=== PATIENT | female | born 1975 | race Caucasian/White ===

== ENCOUNTER 2020-08-27 20:37 | Emergency (ER) | payer OTHER, SELFPAY ==
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
[2020-08-27 21:58] VITALS: BP 176/117; PULSE 94; RESP 20; TEMP 36.9; O2SAT 95; BMI 46.8
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
[2020-08-27 23:43] LABS: Basophils Absolute Auto 0.1 X10*3/uL (0.0-0.2); Basophils Percent Auto 0.7 % (0-2); Eosinophils Absolute Auto 0.2 X10*3/uL (0.0-0.4); Eosinophils Percent Auto 1.7 % (0-4); Hematocrit 43.1 % (37-47); Hemoglobin 15.1 g/dl (12.0-16.0); Imm Gran Abs Auto 0.03 X10*3/uL (0.00-0.03); Imm Gran Pct Auto 0.3 % (0.0-0.4); Lymphocytes Absolute Auto 2.5 X10*3/uL (1.2-4.9); Lymphocytes Percent Auto 25.9 % (20-40); MANUAL DIFF FLAG NO; Mean Corpuscular Hemoglobin 33.3 pg (27.0-33.0); Mean Corpuscular Volume 94.9 fL (80-98); Mean Platelet Volume 9.2 fL (9.4-12.3); Monocytes Absolute Auto 0.5 X10*3/uL (0.1-1.2); Monocytes Percent Auto 5.5 % (2-11); Neutrophils Absolute Auto 6.4 X10*3/uL (2.0-8.3); Neutrophils Percent Auto 65.9 % (45-73); Platelet Count 274 X10*3/uL (160-400); Red Blood Count 4.54 X10*6/uL (4.20-5.50); Red Cell Distribution Width 11.9 % (11.0-16.0); White Blood Count 9.7 X10*3/uL (4.8-10.8)
[2020-08-27] MEDS: LORazepam 2 MG/ML VIAL 0.5 MG IVPUSH (23:43)
[2020-08-27 23:48] LABS: Prothrombin Time 11.3 SEC (10.8-13.0)
[2020-08-27 23:51] LABS: Partial Thromboplastin Time 33.3 SEC (24.1-38.0)
[2020-08-27] MEDS: Lidocaine HCl 2 % MPF 5 ML VIAL 15 ML SUBCUT (23:51)
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
[2020-08-28 01:47] LABS: Ethanol 155 mg/dL
[2020-08-28 01:49] LABS: Anion Gap 17 (12-20); Blood Urea Nitrogen 7 mg/dL (9-16); Calcium 8.9 mg/dL (8.4-10.2); Carbon Dioxide 20 mmol/L (22-29); Chloride 107 mmol/L (96-108); Creatinine Clr Calc Pharmacy 133.8; Estimated Glomerular Filt Rate > 60; Glucose Random 93 mg/dL (60-115); Potassium 3.9 mmol/L (3.3-5.1); Sodium 140 mmol/L (135-145)
== END 2020-08-28 01:40 | disposition home or self-care (01) ==
PROVIDERS: Nurse Practitioner Family; Emergency Provider Internal Medicine; PCP Internal Medicine
DX: S01.81XA Laceration without foreign body of other part of head, initial encounter (principal); S16.1XXA Strain of muscle, fascia and tendon at neck level, initial encounter; S06.0X9A Concussion with loss of consciousness of unspecified duration, initial encounter; G44.309 Post-traumatic headache, unspecified, not intractable; V43.52XA Car driver injured in collision with other type car in traffic accident, initial encounter; Y93.9 Activity, unspecified; Y92.410 Unspecified street and highway as the place of occurrence of the external cause; Y99.9 Unspecified external cause status; Z23 Encounter for immunization
CPT/HCPCS: 12014; 36415; 70450; 71046; 72125; 73090; 73110; 80048; 80320; 85025; 85610; 85730; 90471; 96374; 99283; 99284; J2060

== ENCOUNTER 2020-09-02 15:47 | Emergency (ER) | payer OTHER, SELFPAY ==
[2020-09-02 15:50] VITALS: BP 174/98; PULSE 99; RESP 18; TEMP 37.2; O2SAT 97; BMI 44.9
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
== END 2020-09-02 20:13 | disposition home or self-care (01) ==
PROVIDERS: Emergency Provider Internal Medicine; PCP Internal Medicine
DX: S01.111D Laceration without foreign body of right eyelid and periocular area, subsequent encounter (principal); V49.9XXD Car occupant (driver) (passenger) injured in unspecified traffic accident, subsequent encounter; Z48.02 Encounter for removal of sutures
CPT/HCPCS: 99283

== ENCOUNTER 2022-04-16 18:06 | Emergency (ER) | payer OTHER, SELFPAY ==
[2022-04-16 18:19] VITALS: BP 183/102; PULSE 90; RESP 18; TEMP 36.6; O2SAT 97; BMI 43.0
== END 2022-04-16 22:18 | disposition left against medical advice (07) ==
PROVIDERS: Emergency Provider Emergency Medicine; PCP Internal Medicine
DX: M79.642 Pain in left hand (principal)
CPT/HCPCS: 99281

== ENCOUNTER 2022-04-17 11:12 | Emergency (ER) | payer OTHER, SELFPAY ==
[2022-04-17 11:29] VITALS: BP 164/88; PULSE 83; RESP 16; TEMP 36.9; BMI 43.0
--- NOTE | 2022-04-17 12:56 | ED_ITS ---
HPI - Burn/Smoke Inhalation General Chief complaint: Burn/Smoke Inhalation Stated complaint: l hand burn Time Seen by Provider: 04/17/22 12:39 Source: patient Mode of arrival: ambulatory Limitations: no limitations History of Present Illness HPI Narrative: 47-year-old female was [id number] presents with burn to the left hand which occurred on . Patient tells me that she was cooking and hot oil s plashed onto her hand. Patient tells me that she has been using aloe cane and Neosporin. For the last 2 days she reports increase in pain especially when the hand is dependent as well as some slight redness around the wound site. No fevers or chills or numbness or tingling. Tetanus is up to date Related Data Previous Rx's Medication Instructions Recorded cephalexin 500 mg capsule 500 mg PO BID #14 caps 04/17/22 Allergies Allergy/AdvReac Type Severity Reaction Status Date / Time ibuprofen Allergy Unknown Stomach Verified 06/23/21 09:37 Upset No Known Allergies Allergy Verified 06/23/21 09:37 NSAIDS (Non-Steroidal AdvReac Gastrointestinal Verified 04/16/22 18:25 Anti-Inflamma Upset cheese Allergy Unknown Diarrhea Uncoded 08/28/20 00:09 cheese/dairy Allergy Unknown URI Uncoded 08/07/17 00:00 symptoms Review of Systems Review of Systems: Yes all other systems are reviewed and are negative Constitutional: Constitutional: Reports no additional constitutional complaints, Denies body ache(s), Denies chills, Denies fever(s), Denies headache(s) and Denies weakness Eyes: Eyes: Reports no additional eye complaints and Denies change in vision ENT: Reports system reviewed and no additional complaints, except as documented, Denies dizziness, Denies headache(s), Denies nasal congestion, Denies nasal discharge and Denies neck pain Cardiovascular: Cardiovascular: Reports no additional cardiovascular complaints, Denies chest pain, Denies leg edema and Denies dyspnea Respiratory: Respiratory: Reports no additional respiratory complaints, Denies cough and Denies dyspnea Gastrointestinal: Gastrointestinal: Reports no additional gastrointestinal complaints, Denies abdominal pain, Denies diarrhea, Denies nausea and Denies vomiting Genitourinary: Genitourinary: Reports no additional female genitourinary complaints and Denies urinary incontinence Musculoskeletal: Musculoskeletal: Reports no additional musculoskeletal complaints, Denies back pain, Denies arthralgias, Denies joint swelling, Denies neck pain, Denies numbness and Denies tingling Integumentary/Breasts: Skin/Breast: Reports system reviewed and no additional complaints, except as docu, Reports swelling, Reports erythema, Denies rash and Reports wounds Neurologic: Reports system reviewed and no additional complaints, except as documented, Denies Abnormal speech present, Denies dizziness, Denies headache(s), Denies numbness, Denies tingling and Denies weakness [facility] Past Medical History Attestation statement: The following information was validated with the patient. Source: old records reviewed and nursing notes reviewed Medical History Anxiety Social History Social History Alcohol intake: current Alcohol intake frequency: 0-2 drinks per day Alcohol type: wine Patient Tobacco Use Status: Current everyday Tobacco user Advance Directives: No Advance Directives Information Provided: No Physical Exam Vital Signs: Vital Signs: Last Vital Signs Temp 98.4 F 04/17/22 11:29 Pulse 83 04/17/22 11:29 Resp 16 04/17/22 11:29 BP 164/88 H 04/17/22 11:29 O2 Del Method 04/17/22 11:29 BMI result Body Mass Index 43.0 Const: General: cooperative, healthy appearing, comfortable and no acute distress Orientation/consciousness: patient oriented x3 Limitations: no limitations HEENT: Head: Yes normal to inspection Ears: hearing grossly normal bilaterally General nose exam: Normal external nose present Face and sinus: Yes normal facial exam Mouth: Normal oral and palatal mucosa present Throat: Yes posterior oropharynx normal Eyes: General: appearance normal, both eyes and all related structures Neck: Neck: Yes normal visual inspection Resp: Effort & Inspection: normal respiratory effort Neuro: General: patient oriented x3, no focal motor deficits and normal sensation to monofilament Cognition (Neuro): normal cognition Speech: No Abnormal speech present Gait exam (Neuro): Normal gait present Extrem: Other: Over the left dorsal hand there are partial-thickness polanco noted with some erythema surrounding the base of the wounds and some tenderness with swelling. The polanco are not circumferential. Neurovascularly intact distally. Full range of motion of the hand General: Yes normal to inspection MDM - Burn/Smoke Inhalation MDM Narrative Medical decision making narrative: 47-year-old female who is [id number] here with partial-thickness polanco left hand which occurred from a boil splash on . Patient concerned because over the last 48 hours she has had increase in pain, swelling and some redness around the wound sites. On exam the patient does have some slight swelling, tenderness and erythema around the bases of the wound. There may be mild cellulitis. Will treat with course of cephalexin. We discussed wound care at home. Reviewed worrisome signs and symptoms of when to return to the emergency room. Comfortable discharge home. Medical Records Attestation: I reviewed the patient's medical records. Lab Data Attestation: I reviewed the patient's lab results. Discharge Plan Discharge Clinical Impression: Second degree burn of back of left hand, Infected wound Patient Disposition: Home, Self-Care Instructions: Wound Infection (ED), Second Degree Burn (ED) Additional Instructions: apply antibiotic ointment only Prescriptions: New cephalexin 500 mg capsule 500 mg PO BID Qty: 14 0RF Referrals: Mer Saeed MD [Primary Care Provider] - 1 week (as needed)
[2022-04-17] MEDS: cephALEXin 500 MG CAPSULE PO (13:14)
== END 2022-04-17 13:39 | disposition home or self-care (01) ==
PROVIDERS: Emergency Provider Student in an Organized Health Care Education/Training Program; PCP Internal Medicine
DX: L03.114 Cellulitis of left upper limb (principal); T23.262A Burn of second degree of back of left hand, initial encounter; T31.0 Burns involving less than 10% of body surface; X10.2XXA Contact with fats and cooking oils, initial encounter; Y93.G3 Activity, cooking and baking; Y92.030 Kitchen in apartment as the place of occurrence of the external cause; Y99.9 Unspecified external cause status; F17.200 Nicotine dependence, unspecified, uncomplicated
CPT/HCPCS: 99283

== ENCOUNTER 2022-10-27 07:56 | Outpatient (REF) | payer OTHER, SELFPAY ==
--- NOTE | ~2022-10-27 | MM_ITS ---
EXAMINATION: MM DIAGNOSTIC DIGITAL BREAST TOMOSYNTHESIS, BILATERAL US TARGETED BREAST, RIGHT CLINICAL INFORMATION: Right breast lump 2 o'clock position The lifetime risk of breast cancer based on the Tyrer-Cuzick Model is O%. COMPARISON: Mammography: None TECHNIQUE: Digital breast tomosynthesis is performed in both the craniocaudal and mediolateral oblique views along with computer-aided detection (CAD). Synthesized 2D images are generated from the tomosynthesis. Additional right breast spot compression views performed in craniocaudal and mediolateral oblique views. Targeted right breast ultrasound FINDINGS: There are scattered areas of fibroglandular density (ACR BI-RADS breast composition Category b). There are no significant masses, abnormal calcifications, or other abnormalities. Right breast ultrasound in region of palpable abnormality demonstrates a hypoechoic dermal lesion measuring approximately 5 x 3 mm in size with some increased through-sound transmission. There is vascularity seen within and around the lesion. No abscess formation is appreciated. No intraparenchymal extension is appreciated. No significant edematous change is noted. Results are discussed with the patient at time of visit. MM/MM tomosynthesis diagnostic BI IMPRESSION: 1. No suspicious mammographic findings. 2. Ultrasound evaluation of the right breast palpable lesion demonstrates a dermal structure with some hypervascularity. This may represent a sebaceous cyst. Patient is starting antibiotics and clinical follow-up and correlation is suggested. ASSESSMENT: BI-RADS 2: Benign RECOMMENDATION: 1. Patient should be managed based on the clinical impression. Decision to proceed with biopsy should be based on clinical grounds and degree of clinical concern. 2. Otherwise, routine annual screening mammography. This patient's information was entered into a reminder system with a target due date for their next mammogram.
== END 2022-10-27 07:57 | disposition home or self-care (01) ==
LOC: HO.MAMMO 07:56
PROVIDERS: PCP Internal Medicine; Visit Provider Nurse Practitioner Family
DX: N63.12 Unspecified lump in the right breast, upper inner quadrant (principal)
CPT/HCPCS: 76642; 77062; 77066

== ENCOUNTER → 2023-04-30 11:13 | Outpatient (BNVA) | payer OTHER, SELFPAY | PROVIDERS: PCP Internal Medicine | DX: S50.372A Other superficial bite of left elbow, initial encounter (principal); W50.3XXA Accidental bite by another person, initial encounter | CPT/HCPCS: 99203 ==

== ENCOUNTER 2023-06-25 12:22 | Outpatient (AMB) | payer OTHER, SELFPAY ==
--- NOTE | 2023-06-25 14:05 | AM.OFFWIN_ITS ---
Intake Vital Signs 06/25/23 14:12 Height 5 ft Weight 215 lb BMI 42.0 BP 138/80 Blood Pressure Location Rt brachial Position Sitting Pulse 91 Pulse Source Pulse Oximeter Temp 97.6 F Temp Source Temporal Artery Scan Pulse Oximetry (%) 97 Oxygen Delivery Method Room Air Intake Visit Reasons: EP trouble breathing [id number] Intake Note: pt is here for c/o trouble breathing with exertion with cough x2 months Patient Tobacco Use Status: Current everyday Tobacco user Allergies ibuprofen Allergy (Unknown, Verified 06/25/23 14:52) Stomach Upset No Known Allergies Allergy (Verified 06/25/23 14:52) NSAIDS (Non-Steroidal Anti-Inflamma Adverse Reaction (Verified 06/25/23 14:52) Gastrointestinal Upset cheese Allergy (Unknown, Uncoded 06/25/23 14:52) Diarrhea cheese/dairy Allergy (Unknown, Uncoded 06/25/23 14:52) URI symptoms Medication List - Last Reconciled 06/25/23 by Bubba New MD No Known Home Meds Do you need a note to return to daycare/school/sports/work: Yes HPI EP trouble breathing [id number] HPI Details 48-year-old female presents to the [facility] for a sick visit. 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 Shortness of breath is on exertion and associated with a nonproductive cough. Postnasal drip and symptoms of wheezing. No family members sick. She has not tested for COVID at home. [facility] Medical History Anxiety Social History Alcohol intake: current Alcohol intake frequency: 0-2 drinks per day Alcohol type: wine Patient Tobacco Use Status: Current everyday Tobacco user Physical Exam Vital Signs: Last Vital Signs Temp 97.6 F 06/25/23 14:12 Pulse 91 06/25/23 14:12 BP 138/80 06/25/23 14:12 Pulse Ox 97 06/25/23 14:12 Oxygen Delivery Method Room Air 06/25/23 14:12 BMI result Body Mass Index 42.0 Const General: cooperative and healthy appearing Nutritional Appearance: well nourished Orientation/consciousness: patient oriented x3 Limitations: no limitations HEENT Head: Yes normal to inspection Eyes General: appearance normal, both eyes and all related structures Neck Neck: Yes normal visual inspection Chest Chest palpation & inspection: normal palpation of entire chest wall Resp Effort & Inspection: normal respiratory effort Neuro General: patient oriented x3 Assessment & Plan Assessment & Plan (1) Shortness of breath: Code(s): R06.02 - Shortness of breath Plan: X-ray images were personally reviewed by me. Antibiotic and prednisone given. Symptoms do not improve to follow-up here. Will call with the COVID results. Orders: Orders XR chest 2V Today R05.9 - Cough, unspecified Coding Level of Care Code Est Pt Level 4 (16909) Diagnoses Shortness of breath R06.02
[2023-06-25 14:12] VITALS: BP 138/80; PULSE 91; TEMP 36.4; O2SAT 97; BMI 42.0
== END 2023-06-25 15:17 | disposition home or self-care (01) ==
PROVIDERS: PCP Internal Medicine; Visit Provider Internal Medicine
DX: R06.02 Shortness of breath (principal)
CPT/HCPCS: 99214

== ENCOUNTER 2023-06-25 14:47 | Outpatient (REF) | payer OTHER, SELFPAY ==
--- NOTE | ~2023-06-25 | XR_ITS ---
EXAMINATION: XR CHEST CLINICAL INFORMATION: Cough, unspecified COMPARISON: Chest 08/28/2020 TECHNIQUE: 2 views of the chest were obtained. FINDINGS: The lungs are well expanded. Vertical linear opacity at the left lung bases most suggestive of platelike atelectasis. No convincing evidence of focal consolidation, interstitial pulmonary edema or pneumothorax. No significant abnormality is noted involving the heart, mediastinum, bony thorax or soft tissues. Surgical clips are seen in the left upper quadrant. XR/XR chest 2V IMPRESSION: No significant cardiopulmonary disease.
[2023-06-26 12:37] LABS: Influenza A PCR NEGATIVE (Negative); Influenza B PCR NEGATIVE (Negative); Resp Syncy Virus RNA Qual PCR NEGATIVE (Negative); SARS COV2 PCR INHOUSE NEGATIVE (Negative)
== END 2023-06-25 14:48 | disposition home or self-care (01) ==
LOC: HO.HMGCX 14:47
PROVIDERS: Visit Provider Internal Medicine
DX: Z11.52 Encounter for screening for COVID-19 (principal); Z20.822 Contact with and (suspected) exposure to COVID-19; R05.9 Cough, unspecified; R43.9 Unspecified disturbances of smell and taste
CPT/HCPCS: 0241U; 71046

== ENCOUNTER 2023-09-10 15:43 | Outpatient (AMB) | payer OTHER, SELFPAY ==
--- NOTE | 2023-09-10 15:56 | AM.OFFWIN_ITS ---
Intake Vital Signs 09/10/23 15:57 Height 5 ft Weight 212 lb BMI 41.4 BP 150/100 H Blood Pressure Location Lt brachial Position Sitting Pulse 110 H Pulse Source Pulse Oximeter Temp 99.0 F Temp Source Temporal Artery Scan Pulse Oximetry (%) 98 Oxygen Delivery Method Room Air Intake Visit Reasons: EST/uti (lobby) Intake Note: pt is here today for UTI started 3 days ago Patient Tobacco Use Status: Current everyday Tobacco user Allergies ibuprofen Allergy (Unknown, Verified 09/10/23 15:59) Stomach Upset No Known Allergies Allergy (Verified 09/10/23 15:59) NSAIDS (Non-Steroidal Anti-Inflamma Adverse Reaction (Verified 09/10/23 15:59) Gastrointestinal Upset cheese Allergy (Unknown, Uncoded 06/25/23 14:52) Diarrhea cheese/dairy Allergy (Unknown, Uncoded 06/25/23 14:52) URI symptoms Do you need a note to return to daycare/school/sports/work: Yes HPI HPI Comments History of Present Illness Details 48-year-old female presents today compla ining of dysuria urgency frequency x2 days. She does have a past medical history of UTI she does know that her blood pressure was high today at 150/100. She is going to measure it at home for the next few weeks and call her PCP for follow-up [facility] Medical History Anxiety Social History Alcohol intake: current Alcohol intake frequency: 0-2 drinks per day Alcohol type: wine Patient Tobacco Use Status: Current everyday Tobacco user Review of Systems Const All systems reviewed & are unremarkable except as noted in HPI and below Physical Exam Vital Signs: Last Vital Signs Temp 99.0 F 09/10/23 15:57 Pulse 110 H 09/10/23 15:57 BP 150/100 H 09/10/23 15:57 Pulse Ox 98 09/10/23 15:57 Oxygen Delivery Method Room Air 09/10/23 15:57 BMI result Body Mass Index 41.4 The high blood pressure reading was discussed with the patient today Const General: healthy appearing and in distress mild Results AMB Urinalysis, Automated UA Leukoctes 70 Neelam/uL Last Edit by Meghan Zambrano CMA on 09/10/23 16:16 UA Nitrite Negative Last Edit by Meghan Zambrano, SIGNALS INTELLIGENCE SUPERINTENDENT on 09/10/23 16:16 UA Urobilinogen 0.2 mg/dL Last Edit by Meghan Zambrano, SIGNALS INTELLIGENCE SUPERINTENDENT on 09/10/23 16 :16 UA Protein 30 mg/dL Last Edit by Meghan Zambrano, SIGNALS INTELLIGENCE SUPERINTENDENT on 09/10/23 16:16 UA pH 6.0 Last Edit by Meghan Zambrano, SIGNALS INTELLIGENCE SUPERINTENDENT on 09/10/23 16:16 UA Blood 10 [place]awanda/uL Last Edit by Meghan Zambrano, SIGNALS INTELLIGENCE SUPERINTENDENT on 09/10/23 16:16 UA Specific [place] 1.020 Last Edit by Meghan Zambrano, SIGNALS INTELLIGENCE SUPERINTENDENT on 09/10/23 16:16 UA Ketone Positive Last Edit by Meghan Zambrano, SIGNALS INTELLIGENCE SUPERINTENDENT on 09/10/23 16:16 UA Bilirubin 1 mg/dL Last Edit by Meghan Zambrano, SIGNALS INTELLIGENCE SUPERINTENDENT on 09/10/23 16:16 UA Glucose 0 mg/dL Last Edit by Meghan Zambrano, SIGNALS INTELLIGENCE SUPERINTENDENT on 09/10/23 16:16 Results Reviewed Results Reviewed: I discuss the results of the urinalysis with her and the urine culture that will return in 2 days Assessment & Plan Assessment & Plan (1) UTI (urinary tract infection): Code(s): N39.0 - Urinary tract infection, site not specified Plan: Patient will take antiemetics and will follow up with her urine culture in 2 days Orders: Orders Urine Culture Today R30.0 - Dysuria AMB Urinalysis Automated Today Z13.9 - Encounter for screening, unspecified Medications: New cephalexin 500 mg PO BID 14 caps 0RF 7 days Coding Level of Care Code Est Pt Level 3 (90020) Diagnoses UTI (urinary tract infection) N39.0
[2023-09-10 15:57] VITALS: BP 150/100; PULSE 110; TEMP 37.2; O2SAT 98; BMI 41.4
== END 2023-09-10 17:17 | disposition home or self-care (01) ==
PROVIDERS: Visit Provider Physician Assistant Medical
DX: N39.0 Urinary tract infection, site not specified (principal); R30.0 Dysuria
CPT/HCPCS: 81003; 99213

== ENCOUNTER 2023-12-19 09:43 | Outpatient (AMB) | payer OTHER, SELFPAY ==
[2023-12-19 09:51] VITALS: BP 126/76; PULSE 103; TEMP 36.3; O2SAT 97; BMI 43.7
--- NOTE | 2023-12-19 09:51 | AM.OFFWIN_ITS ---
Intake Vital Signs 12/19/23 09:51 Height 5 ft Weight 224 lb BMI 43.7 BP 126/76 Blood Pressure Location Lt brachial Position Sitting Pulse 103 H Pulse Source Pulse Oximeter Temp 97.4 F Temp Source Temporal Artery Scan Pulse Oximetry (%) 97 Oxygen Delivery Method Room Air Intake Visit Reasons: EP ?UTI Intake Note: pt is here todsy for UTI started 1 week ago Patient Tobacco Use Status: Current everyday Tobacco user Allergies ibuprofen Allergy (Unknown, Verified 12/19/23 09:58) Stomach Upset No Known Allergies Allergy (Verified 12/19/23 09:58) NSAIDS (Non-Steroidal Anti-Inflamma Adverse Reaction (Verified 12/19/23 09:58) Gastrointestinal Upset cheese Allergy (Unknown, Uncoded 12/19/23 09:58) Diarrhea cheese/dairy Allergy (Unknown, Uncoded 12/19/23 09:58) URI symptoms Do you need a note to return to daycare/school/sports/work: Yes HPI HPI Comments History of Present Illness Details Patient is a 48yo F who presents to office with UTI concern She was last seen in September for a UTI that as tx with cephalexin She had complete resolution of her symptoms She has hx of urge incontinence and wears a pad She wakes up in the am sometimes and her pad is wet Denies recent diarrhea or illness She said frequency, urgency and supraoubic pressure x 5 days No dysuria, hematuria adominal or back pain Denies fever or chills Azo helps Has not seen urologist She also states dry red rash to L leg and R arm for a while Believes it is psoriasis Using OTC cream without relief + itchy and not painful PFSH Medical History Anxiety Social History Alcohol intake: current Alcohol intake frequency: 0-2 drinks per day Alcohol type: wine Patient Tobacco Use Status: Current everyday Tobacco user Review of Systems Const Denies chills and Denies fever(s) ENT Denies nasal discharge Resp Denies cough GI Denies abdominal pain, Denies diarrhea and Denies vomiting Denies hematuria, Denies dysuria, Reports pelvic pain, Reports urinary incontinence (urge), Reports urinary hesitancy, Reports urinary urgency, Denies vaginal discharge (denies concern stds) and Denies vaginal dryness Musc Denies back pain Skin/Breast Reports pruritus and Reports erythema Physical Exam Vital Signs: Last Vital Signs Temp 97.4 F 12/19/23 09:51 Pulse 103 H 12/19/23 09:51 BP 126/76 12/19/23 09:51 Pulse Ox 97 12/19/23 09:51 Oxygen Delivery Method Room Air 12/19/23 09:51 BMI result Body Mass Index 43.7 General: Non-toxic, NAD. Speaking full sentences. Skin: Warm dry throughout. L anterior wylie pt has slightly raised erythematous dry patch approx 3cm x 5cm with 3 small excoriations. No warmth. No lesions noted to arm. Non-tender to palpation Eye: EOMI Respiratory: CTA bilaterally. No wheezes, rales or rhonchi Cardiac: RRR. No murmur Abdominal: Non-tender. No CVAT MSK: Full ROM extremities. Neurology: A/O. No aphasia or facial droop. Gait without abnormality Psych: Good mood and affect Results AMB Urinalysis, Automated UA Leukoctes 0 Neelam/uL Last Edit by YOAN Dominique on 12/19/23 10:02 UA Nitrite Negative Last Edit by YOAN Dominique on 12/19/23 10:02 UA Urobilinogen 0.2 mg/dL Last Edit by YOAN Dominique on 12/19/23 10:0 2 UA Protein 0 mg/dL Last Edit by YOAN Dominique on 12/19/23 10:02 UA pH 6.0 Last Edit by YOAN Dominique on 12/19/23 10:02 UA Blood 0 Tawanda/uL Last Edit by YOAN Dominique on 12/19/23 10:02 UA Specific [place] 1.015 Last Edit by YOAN Dominique on 12/19/23 10: 02 UA Ketone Negative Last Edit by YOAN Dominique on 12/19/23 10:02 UA Bilirubin 0 mg/dL Last Edit by YOAN Dominique on 12/19/23 10:02 UA Glucose 0 mg/dL Last Edit by YOAN Dominique on 12/19/23 10:02 Assessment & Plan Assessment & Plan (1) Contact dermatitis: Code(s): L25.9 - Unspecified contact dermatitis, unspecified cause Qualifiers: Contact dermatitis type: irritant Contact dermatitis trigger: unspecified trigger Qualified Code(s): L24.9 - Irritant contact dermatitis, un specified cause Plan: Patient seen and evaluated. Cortisone on leg. Not to use on face/mouth/eyes (2) Urgency of urination: Code(s): R39.15 - Urgency of urination Plan: cephalexin Increase fluids F/U with PCP and urology Dicussed all ways to avoid UTIs Patient gave verbal understanding and had no additional questions or concerns at time of discharge All questions answered Orders: Orders AMB Urinalysis Automated Today Z13.9 - Encounter for screening, unspecified Medications: New cephalexin 500 mg PO BID 10 caps 0RF triamcinolone acetonide 0.5% 1 appl topical BID 15 grams 0RF Coding Level of Care Code Est Pt Level 3 (76524) Diagnoses Irritant contact dermatitis, unspecified trigger L24.9 Contact dermatitis type: irritant Contact dermatitis trigger: unspecified trigger Urgency of urination R39.15
== END 2023-12-19 12:16 | disposition home or self-care (01) ==
PROVIDERS: Visit Provider Physician Assistant
DX: L24.9 Irritant contact dermatitis, unspecified cause (principal); R39.15 Urgency of urination
CPT/HCPCS: 81003; 99213

== ENCOUNTER 2025-03-06 07:41 | Outpatient (AMB) | payer BC, SELFPAY ==
--- OUTSIDE RECORDS SUMMARY | 2025-03-06 07:44 | XMS_ITS | Clinical Summary ---
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 Role Phone Unavailable Primary Care Provider Unavailabl e Social History Tobacco Use Types Packs/Day Years Used Date Smoking Tobacco: Never Assessed Comments Unknown Sex and Gender Information Value Date Recorded Sex Assigned at Not on file Legal Sex Female 9:41 AM EST Gender Identity Not on file Sexual Orientation Not on file Plan of Treatment Health Maintenance Due Date Last Done Comments Breast Cancer Screening 1975 DTaP,Tdap,and Td Vaccines (1 - Tdap) 01/21/1995 Hepatitis B Vaccines (1 of 3 - 19+ 3-dose series) 01/21/1995 Cervical Cancer Screening: P ap Smear 01/21/1997 COVID-19 Vaccine ( - 2023-2 5 season) 2024 Depression Screening 07/09/2024 Influenza Vaccine (#1) 2025 HIB Vaccines Aged Out No longer eligi ble based on patient's age to complete this topic HPV Vaccines Aged Out No longer eligi ble based on patient's age to complete this topic Hepatitis A Vaccines Aged Out No long er eligible based on patient's age to complete this topic IPV Vaccines Aged Out No longer eligi ble based on patient's age to complete this topic MMR Vaccines Aged Out No longer eligi ble based on patient's age to complete this topic Meningococcal ACWY Vaccine Aged Out N o longer eligible based on patient's age to complete this topic Meningococcal B Vaccine Aged Out No l onger eligible based on patient's age to complete this topic Pneumococcal Vaccine: Pediat rics (0 to 5 Years) and At-Risk Patients (6 to 49 Years) Aged Out No longer eligible b ased on patient's age to complete this topic RSV Immunization Patients Un marla 20 months Aged Out No longer eligible b ased on patient's age to complete this topic Varicella Vaccines Aged Out No longer eligible based on patient's age to complete this topic
[2025-03-06 07:53] VITALS: BP 152/98; PULSE 80; O2SAT 98; BMI 44.3
--- NOTE | 2025-03-06 07:53 | A.OFFPC_ITS ---
Vital Signs 03/06/25 07:53 Height 5 ft Weight 227 lb BMI 44.3 BP 152/98 H Blood Pressure Location Lt brachial Position Sitting Pulse 80 Pulse Source Pulse Oximeter Pulse Oximetry (%) 98 Oxygen Delivery Method Room Air Intake Visit Reasons: Director Independent establish care Allergies ibuprofen Allergy (Unknown, Verified 03/06/25 07:54) Stomach Upset No Known Allergies Allergy (Verified 03/06/25 07:54) NSAIDS (Non-Steroidal Anti-Inflamma Adverse Reaction (Verified 03/06/25 07:54) Gastrointestinal Upset cheese Allergy (Unknown, Uncoded 03/06/25 07:54) Diarrhea cheese/dairy Allergy (Unknown, Uncoded 03/06/25 07:54) URI symptoms Medication List - Last Reconciled 03/06/25 by Olga Mccormick PA-C No Known Home Meds Tobacco use date assessed: 03/06/25 Dental Screening Dental Screen Date: 03/06/25 Did you have a dental visit in the last 12 months?: No Did you have a dental problem in the last 6 months where you did not have access to dental care?: No Was dental information given to patient?: No HPI Director Independent establish care HPI Details 50-year-old female coming to the office with the 1st time. Today she tells us she has multiple complaints the 1st being she has recurrent urinary tract infection and is currently having burning with urination and urgency. She has around 4-5 UTIs per year and has been recently experiencing worsening incontinence. Does not identify stress incontinence but more so mixed incontinence which has been going on for the last several months. She does not currently have a pearl maker and is not sexually active. She also mentions having elevated blood pressure in medical offices in his not been monitoring the blood pressures at home. She denies any symptoms associated with the blood pressures. 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 She does do repetitive work and plays video games in her free time as well which may be contributing to potentially carpal tunnel syndrome. Denies any burning or pain in the hands but does have numbness and tingling consistently throughout the day. She does also mentioned having patches of possibly psoriasis on the hands and chest that has been improving with steroid creams. She also mentions having worsening anxiety and depression and uncontrolled ADHD and is looking for medication at this time. She has been follow up with a counselor in the past and did not find this helpful. [facility] Medical History Anxiety Surgical History S/P gastric bypass Family History Mother COPD (chronic obstructive pulmonary disease) Heart disease Father Heart attack Brother No problems noted. Son No problems noted. Son No problems noted. Maternal Grandmother Breast cancer Maternal Aunt Breast cancer Other Mental health disorder Substance use disorder Social History Housing: Apartment Alcohol intake: current Alcohol intake frequency: 0-2 drinks per day Alcohol type: wine Patient Tobacco Use Status: Current everyday Tobacco user Tobacco use type: Cigarette Cigarettes Per Day: 15 e-Cigarette/Vaping Use: Never Used Second Hand Smoke Exposure: Yes service: No Current occupational status: employed Current occupation: Para-professional at a elementary school Current occupational exposures/hazards: No Cognitive needs: No Hearing needs: No Vision needs: Yes Female Reproductive History Menstrual control method: progestin IUCD Total pregnancies: 3 Full term: 2 Ab spontaneous: 1 History of abnormal pap smear: No History of STI: No History of abnormal mammogram: No Questionnaire PHQ-9 Over the last 2 weeks, how often have you been bothered by any of the following problems? 1. Little interest or pleasure in doing things: more than half the days 2. Feeling down, depressed, or hopeless: several days 3. Trouble falling or staying asleep, or sleeping too much: nearly every day 4. Feeling tired or having little energy: several days 5. Poor appetite or overeating: several days 6. Feeling bad about yourself - or that you are a failure or have let yourself or your family down: several days 7. Trouble concentrating on things, such as reading the newspaper or watching television: several days 8. Moving or speaking so slowly that other people could have noticed. Or the opposite - being so fidgety or restless that you have been moving around a lot more than usual: not at all 9. Thoughts that you would be better off or of hurting yourself in some way: not at all Total score: 10 Depression Screening Interpretation: Positive Depression Screening Done: Yes 75813 - PHQ-9 Billing: Yes Source: Developed by Drs. Morris Parrish, Lilliana Romero, Salomón Don and colleagues, with an educational iain from [employer]. Thrive Questionnaire Date Thrive assessed: 03/06/25 I am a: Patient What is your living situation today?: I have a steady place to live Within the past 12 months, did the food you bought not last and you didn't have the money to get more?: Never true Within the past 12 months, did you worry whether your food would run out before you got money to buy more?: Never true Do you have trouble paying for medicines?: No Do you have trouble getting transportation to medical appointments?: No Do you have trouble paying your heating and electricity bill?: No Do you have trouble taking care of your child, family member or friend?: No Do you have trouble with day-to-day activities such as bathing, preparing meals, shopping, managing finances, etc.?: No Are you currently unemployed and looking for a job?: No Are you interested in more education?: Yes Please select the resources that you would like help with: None Currently or been in a relationship where the following occur: No concerns reported THRIVE Score: 0 AUDIT C Alcohol Use Questionnaire (AUDIT-C) 1. How often do you have a drink containing alcohol?: 4 or more times a week 2. How many drinks containing alcohol do you have on a typical day when you are drinking?: 1 or 2 3. How often do you have six or more drinks on one occasion?: Never Total Score: 4 DEE-7 AMB Questionnaire DEE-7 Date DEE - 7 assessed: 03/06/25 Feeling nervous, anxious, or on edge: 2 = More than half the days Not being able to stop or control worryin = More than half the days Worrying too much about different things: 2 = More than half the days Trouble relaxin = More than half the days Being so restless that it is hard to sit still: 1 = Several days Becoming easily annoyed or irritable: 0 = Not at all Feeling afraid as if something awful might happen: 1 = Several days Total DEE-7 score (0-4 normal; 5-9 mild; 10-14 moderate; 15-21 severe): 10 Source: Developed by Drs. Morris Parrish, Lilliana Romero, Salomón Don and colleagues, with an educational iain from [employer]. DEE-7 Assessment Billing DEE-7 Assessment Tool: DEE-7 Assessment 64927 Review of Systems Const Denies body aches, Denies chills, Denies fever(s), Denies headache(s) and Denies poor appetite Eyes Reports no additional complaints ENT Denies dizziness and Denies headache(s) Card Denies chest pain, Denies syncope, Denies edema, Denies irregular heart rhythm, Denies lightheadedness and Denies dyspnea Resp Denies dyspnea GI Denies abdominal pain, Denies nausea and Denies vomiting Reports as per HPI Musc Reports as per HPI and Denies abnormal gait Skin/Breast Reports system reviewed and no additional complaints, except as documented Neuro Denies abnormal gait, Denies dizziness, Denies syncope and Denies headache(s) Psych Reports no additional complaints Physical exam (Primary Care) Vital Signs: Last Vital Signs Pulse 80 03/06/25 07:53 BP 152/98 H 03/06/25 07:53 Pulse Ox 98 03/06/25 07:53 Oxygen Delivery Method Room Air 03/06/25 07:53 BMI result Body Mass Index 44.3 Tobacco/Smoking Status: Tobacco use Status Tobacco use date assessed 03/06/25 03/06/25 08:04 Patient Tobacco Use Status Current everyday Tobacco 03/06/25 08:04 Tobacco use type Cigarette 03/06/25 08:04 e-Cigarette/Vaping Use Never Used 03/06/25 08:04 PHQ-9: PHQ-9 Score PHQ-9: Total score 10 03/06/25 11:07 Depression Screening Interpretation: Positive Thrive Assessment: Date of Thrive Assessment Date Thrive assessed 03/06/25 03/06/25 08:04 Currently or been in a relationship where the following occur: No concerns reported Const General: cooperative, healthy appearing, comfortable and no acute distress Orientation/consciousness: patient oriented x3 HENMT Head: Yes normocephalic Ears: hearing grossly normal bilaterally General nose exam: Normal external nose present Eyes General: appearance normal, both eyes and all related structures Conjunctivae: conjunctivae normal Neck Neck: Yes full ROM and Yes no lymphadenopathy Resp Effort & Inspection: normal respiratory effort Auscultation: clear to auscultation bilaterally, no crackles, no rales, no rhonchi and no wheezes Cardio Rate: regular rate Rhythm: regular rhythm Skin General skin exam: no rashes or lesions noted Neuro General: patient oriented x3 Gait exam (Neuro): Normal gait present Extrem Other: No tenderness to palpation over entirety of right knee and no swelling, redness or warmth. Intact strength, sensation, pulses in bilateral lower extremities calf tenderness Positive Tinel test General: Yes normal to inspection, Yes full ROM and No edema Psych Affect: normal affect Attitude: cooperative Insight: Good insight present (Psych) Judgement: Good judgement present (Psych) Results AMB Urinalysis, Automated UA Leukoctes 125 Neelam/uL Last Edit by Federica Winters CMA on 03/06/25 08:55 UA Nitrite Negative Last Edit by Federica Winters CMA on 03/06/25 08:55 UA Urobilinogen 0.2 mg/dL Last Edit by Federica Winters CMA on 03/06/25 08:55 UA Protein 15 mg/dL Last Edit by Federica Winters CMA on 03/06/25 08:55 UA pH 6.0 Last Edit by Federica Winters CMA on 03/06/25 08:55 UA Blood 10 Tawanda/uL Last Edit by Federica Winters CMA on 03/06/25 08:55 UA Specific [place] 1.025 Last Edit by Federica Winters CMA on 03/06/25 08:55 UA Ketone Negative Last Edit by Federica Winters CMA on 03/06/25 08:55 UA Bilirubin 0 mg/dL Last Edit by Federica Winters CMA on 03/06/25 08:55 UA Glucose 0 mg/dL Last Edit by Federica Winters CMA on 03/06/25 08:55 Results Reviewed Results Reviewed: Laboratory Last Values Urine pH (Auto) 6.0 03/06/25 08:54 Specific [place] (Auto) 1.025 03/06/25 08:54 Urine Protein (Auto) 15 mg/dL 03/06/25 08:54 Glucose (UA)(Auto) 0 mg/dL 03/06/25 08:54 Urine Ketones (Auto) Negative 03/06/25 08:54 Urine Blood (Auto) 10 [place]anda/uL 03/06/25 08:54 Urine Nitrite (Auto) Negative 03/06/25 08:54 Urine Bilirubin (Auto) 0 mg/dL 03/06/25 08:54 Urine Urobilinogen (Auto) 0.2 mg/dL 03/06/25 08:54 Leukocyte Esterase (Auto) 125 Neelam/uL 03/06/25 08:54 Coding Level of Care Code New Pt Level 4 (31118) Diagnoses Stomach ulcer K25.9 Recurrent UTI N39.0 Incontinence R32 Anxiety F41.9 ADHD F90.9 OCD (obsessive compulsive disorder) F42.9 Tobacco use disorder F17.200 IUD (intrauterine device) in place Z97.5 Screening for hypercholesterolemia Z13.220 Dermatitis L30.9 Numbness and tingling in both hands R20.0; R20.2 Right knee pain M25.561 Additional Codes DEE-7 Assessment Billing - DEE-7 Assessment Tool: DEE-7 Assessment 52662 ([id number]) PHQ-9 - 67620 - PHQ-9 Billing: Yes ([id number]) Assessment & Plan Assessment & Plan (1) Stomach ulcer: Comment: 2014 Code(s): K25.9 - Gastric ulcer, unspecified as acute or chronic, without hemorrhage or perforation Category: Medical Plan: Patient has a history of a stomach ulcer in his no longer on PPI. Discussed the avoidance of certain foods and NSAIDs and if acid reflux occurs plan to start on omeprazole (2) Recurrent UTI: Code(s): N39.0 - Urinary tract infection, site not specified Category: Medical Plan: Patient having urinary tract infection in the office today plan to treat with Macrobid twice daily for 7 days and urine culture was sent to further guide antibiotic treatment. Referral was also placed to Urology as patient has recurrent urinary tract infections alongside mixed incontinence. Discussed proper hygiene and avoidance of UTIs. (3) Incontinence: Code(s): R32 - Unspecified urinary incontinence Category: Medical Plan: See above (4) Anxiety: Code(s): F41.9 - Anxiety disorder, unspecified Category: Medical Plan: For anxiety and ADHD management plan to start on Wellbutrin 150 mg daily and consider taper up to 150 mg b.i.d. based on tolerance. Patient has been on this in the past which has helped her anxiety previously. No history of seizure disorder and side effects were discussed at length with the patient. Follow up in 3 months. (5) ADHD: Code(s): F90.9 - Attention-deficit hyperactivity disorder, unspecified type Category: Medical Plan: See above (6) OCD (obsessive compulsive disorder): Code(s): F42.9 - Obsessive-compulsive disorder, unspecified Category: Medical Plan: Declining referral at this time (7) Tobacco use disorder: Code(s): F17.200 - Nicotine dependence, unspecified, uncomplicated Category: Medical Plan: Smoking cigarettes and the use of tobacco can be harmful. We discussed the importance of stopping and options to aid in smoking cessation. Plan to start on Wellbutrin for smoking cessation (8) IUD (intrauterine device) in place: Code(s): Z97.5 - Presence of (intrauterine) contraceptive device Category: Medical Plan: Patient has IUD in place and referral was placed to gynecology as this may need to be removed. (9) Screening for hypercholesterolemia: Code(s): Z13.220 - Encounter for screening for lipoid disorders Category: Medical Plan: Blood work ordered (10) Dermatitis: Code(s): L30.9 - Dermatitis, unspecified Category: Medical Plan: For dermatitis plan to give steroid cream to be used as needed low longer than 14 days. In referral was placed to Dermatology as well (11) Numbness and tingling in both hands: Code(s): R20.0 - Anesthesia of skin; R20.2 - Paresthesia of skin Category: Medical Plan: For numbness and tingling in bilateral hands high suspicion for carpal tunnel syndrome given patient's occupation and positive Tinel's test today. Plan for EMG and consider referral for orthopedics. Discussed the use of nighttime wrist splints (12) Right knee pain: Code(s): M25.561 - Pain in right knee Category: Medical Plan: For right knee pain plan to obtain x-ray for further evaluation and consider orthopedics or physical therapy referral Plan This note was constructed using voice recognition software. While every effort has been made to ensure accuracy and cane weigher helper, still areas may have been included sometimes these areas may affect the content or meeting of the given symptoms. Total time spent caring for the patient today was 45 minutes. This includes time spent before the visit reviewing the chart, time spent during the visit, and time spent after the visit and documentation. Orders: Orders MM tomosynthesis screening BI Today Z12.31 - Encounter for screening mammogram for malignant neoplasm of breast AMB Urinalysis Dipstick Today N39.0 - Urinary tract infection, site not specified, Z13.9 - Encounter for screening, unspecified TSH reflex Free T4 Today Z13.29 - Encounter for screening for other suspected endocrine disorder Lipid Panel Today Z13.220 - Encounter for screening for lipoid disorders Free T4 (Free Thyroxine) Today Z00.00 - Encounter for general adult medical examination without abnormal findings Hemoglobin A1c Today L30.9 - Dermatitis, unspecified, Z13.1 - Encounter for screening for diabetes mellitus NE electromyogram (EMG) Today R20.0 - Anesthesia of skin, R20.2 - Paresthesia of skin NE nerve conduction velocity Today R20.0 - Anesthesia of skin, R20.2 - Paresthesia of skin Comprehensive Met. Panel Today R32 - Unspecified urinary incontinence, Z00.00 - Encounter for general adult medical examination without abnormal findings Complete Blood Count Auto Diff Today N39.0 - Urinary tract infection, site not specified, Z00.00 - Encounter for general adult medical examination without abnormal findings Vitamin B12 and Folate Today Z13.21 - Encounter for screening for nutritional disorder Vitamin D 25-OH Total Today Z13.21 - Encounter for screening for nutritional disorder XR knee RT 2V Today M25.561 - Pain in right knee AMB Urinalysis Automated Today N39.0 - Urinary tract infection, site not specified Urine Culture Today N39.0 - Urinary tract infection, site not specified Referrals HISTOLOGIST TECHNOLOGIST Referral K25.9 - Gastric ulcer, unspecified as acute or chronic, without hemorrhage or perforation, R30.0 - Dysuria, Z12.4 - Encounter for screening for malignant neoplasm of cervix, Z97.5 - Presence of (intrauterine) contraceptive device Urology Referral N39.0 - Urinary tract infection, site not specified, R32 - Unspecified urinary incontinence Cologuard Test Z12.11 - Encounter for screening for malignant neoplasm of colon, Z12.12 - Encounter for screening for malignant neoplasm of rectum Medications: New bupropion HCl SR (Wellbutrin SR) 150 mg PO DAILY 30 tabs 0RF triamcinolone acetonide 0.1% 1 appl topical DAILY 30 grams 0RF nitrofurantoin monohyd/m-cryst 100 mg must administer with a meal/food 100 mg PO Q12H 10 caps 0RF 5 days
== END 2025-03-06 09:01 | disposition home or self-care (01) ==
LOC: HO.HMCH 07:42
DX: K25.9 Gastric ulcer, unspecified as acute or chronic, without hemorrhage or perforation (principal); N39.0 Urinary tract infection, site not specified; R32 Unspecified urinary incontinence; F41.9 Anxiety disorder, unspecified; F90.9 Attention-deficit hyperactivity disorder, unspecified type; F42.9 Obsessive-compulsive disorder, unspecified; F17.200 Nicotine dependence, unspecified, uncomplicated; Z97.5 Presence of (intrauterine) contraceptive device; Z13.220 Encounter for screening for lipoid disorders; L30.9 Dermatitis, unspecified; R20.0 Anesthesia of skin; R20.2 Paresthesia of skin; M25.561 Pain in right knee

== ENCOUNTER → 2025-03-06 07:41 | Outpatient (BNVA) | payer BC, SELFPAY | DX: N39.46 Mixed incontinence (principal); N39.0 Urinary tract infection, site not specified; R20.0 Anesthesia of skin; R20.2 Paresthesia of skin; K25.9 Gastric ulcer, unspecified as acute or chronic, without hemorrhage or perforation; F41.9 Anxiety disorder, unspecified; F90.9 Attention-deficit hyperactivity disorder, unspecified type; F42.9 Obsessive-compulsive disorder, unspecified; F17.210 Nicotine dependence, cigarettes, uncomplicated; Z97.5 Presence of (intrauterine) contraceptive device | CPT/HCPCS: 81003; 96127 ==

== ENCOUNTER 2025-03-06 11:53 | Outpatient (REF) | payer BC, SELFPAY | END 2025-03-06 11:54 | disposition home or self-care (01) | LOC: HO.LNP 11:53 | DX: N39.0 Urinary tract infection, site not specified (principal) | CPT/HCPCS: 87086 ==

== ENCOUNTER 2025-03-13 07:54 | Outpatient (REF) | payer BC, SELFPAY ==
--- OUTSIDE RECORDS SUMMARY | 2025-03-13 07:56 | XMS_ITS | Clinical Summary ---
Author Organization [facility] ity Address [address] [place] [address] Care Team Providers Care Asbestos Surveyor Name Role Phone Unavailable Primary Care Provider [...] Screening: P ap Smear 01/21/1997 COVID-19 Vaccine (2023-2 5 season) 2024 Depression Screening 07/09/2024 Influenza [...]
[2025-03-13 10:50] LABS: MANUAL DIFF FLAG NO
[2025-03-13 10:56] LABS: Hematocrit 46.2 % (37.0-47.0); Hemoglobin 16.2 g/dl (12.0-16.0); Mean Corpuscular HGB Conc 35.1 g/dl (31.0-35.0); Mean Corpuscular Hemoglobin 32.7 pg (27.0-33.0); Mean Corpuscular Volume 93.3 fL (80.0-98.0); Red Blood Count 4.95 X10*6/uL (4.20-5.50); White Blood Count 6.9 X10*3/uL (4.8-10.8)
[2025-03-13 10:57] LABS: Imm Gran Abs Auto 0.02 X10*3/uL (0.00-0.03); Imm Gran Pct Auto 0.3 % (0.0-0.4); Lymphocytes Absolute Auto 2.4 X10*3/uL (1.2-4.9); NRBC Abs Auto 0.000 X10*3/uL (0.0-0.012); NRBC Pct Auto 0.0 /100WBC (0.0-0.2); Platelet Count 330 X10*3/uL (160-400)
[2025-03-13 11:05] LABS: Hemoglobin A1C 134.9646 umol/L; Total Hemoglobin (HGBA1C) 4118.4639 umol/L
[2025-03-13 11:09] LABS: Alanine Aminotransferase 21 U/L (0-31); Albumin Level 4.6 g/dL (3.5-5.0); Alkaline Phosphatase 76 U/L (39-117); Anion Gap 13 (12-20); Aspartate Amino Transferase 26 U/L (5-31); Blood Urea Nitrogen 11 mg/dL (9-16); Calcium 9.1 mg/dL (8.4-10.2); Carbon Dioxide 24 mmol/L (22-29); Chloride 105 mmol/L (96-108); Cholesterol 204 mg/dL (<200); Estimated Glomerular Filt Rate > 60; HDL Cholesterol 79 mg/dL (>40); Potassium 4.3 mmol/L (3.3-5.1); Sodium 138 mmol/L (135-145); Total Protein 7.5 g/dL (6.5-8.0); Triglycerides 91 mg/dL (<150)
[2025-03-13 11:42] LABS: Free T4 (Free Thyroxine) 0.88 ng/dL (0.71-1.85)
[2025-03-13 11:50] LABS: Folate 9.8 ng/mL (> or = 4.0); Vitamin B12 221 pg/mL (200-900)
== END 2025-03-13 07:55 | disposition home or self-care (01) ==
LOC: HO.10HDL 07:54
DX: Z00.00 Encounter for general adult medical examination without abnormal findings (principal); Z13.1 Encounter for screening for diabetes mellitus; Z13.21 Encounter for screening for nutritional disorder; Z13.29 Encounter for screening for other suspected endocrine disorder; Z13.220 Encounter for screening for lipoid disorders; L30.9 Dermatitis, unspecified; R32 Unspecified urinary incontinence; N39.0 Urinary tract infection, site not specified; Z13.6 Encounter for screening for cardiovascular disorders
CPT/HCPCS: 36415; 80053; 80061; 82306; 82607; 82746; 83036; 84439; 84443; 85025

== ENCOUNTER → 2025-03-26 07:45 | Outpatient (BNV) | payer BC, SELFPAY | PROVIDERS: Visit Provider Internal Medicine | DX: Z12.31 Encounter for screening mammogram for malignant neoplasm of breast (principal) | CPT/HCPCS: 77063; 77067 ==

== ENCOUNTER 2025-03-26 07:51 | Outpatient (REF) | payer BC, SELFPAY ==
--- OUTSIDE RECORDS SUMMARY | 2025-03-26 07:57 | XMS_ITS | Clinical Summary ---
Author Organization [facility] ity Address [address] [place] [address] Care Team Providers Care Ell Teacher Name Role Phone Unavailable Primary Care Provider [...] Cervical Cancer Screening: P ap Smear 01/21/1997 Depression Screening 07/09/2024 COVID-19 Vaccine ( - 2023-2 5 season) 2025 Influenza Vaccine (#1) 2025 HIB Vaccines Aged [...]
== END 2025-03-26 07:52 | disposition home or self-care (01) ==
LOC: HO.MAMMO 07:51
DX: Z12.31 Encounter for screening mammogram for malignant neoplasm of breast (principal)
CPT/HCPCS: 77063; 77067

== ENCOUNTER 2025-04-09 08:42 | Outpatient (AMB) | payer BC, SELFPAY ==
[2025-04-09 09:03] VITALS: BP 168/104; PULSE 84; TEMP 36.2; O2SAT 98; BMI 44.7
--- NOTE | 2025-04-09 09:03 | A.OFFPC_ITS ---
Vital Signs 04/09/25 09:03 Height 5 ft Weight 229 lb 2 oz BMI 44.7 BP 168/104 H Blood Pressure Location Lt brachial Position Sitting Pulse 84 Pulse Source Pulse Oximeter Temp 97.1 F Temp Source Temporal Artery Scan Pulse Oximetry (%) 98 Oxygen Delivery Method Room Air Intake Visit Reasons: follow up Allergies ibuprofen Allergy (Unknown, Verified 04/09/25 09:08) Stomach Upset No Known Allergies Allergy (Verified 04/09/25 09:08) NSAIDS (Non-Steroidal Anti-Inflamma Adverse Reaction (Verified 04/09/25 09:08) Gastrointestinal Upset cheese Allergy (Unknown, Uncoded 04/09/25 09:08) Diarrhea cheese/dairy Allergy (Unknown, Uncoded 04/09/25 09:08) URI symptoms Medication List - Last Reconciled 04/09/25 by Olga Mccormick PA-C bupropion HCl SR (Wellbutrin SR) 150 mg PO DAILY cholecalciferol (vitamin D3) 25 mcg PO DAILY nitrofurantoin monohyd/m-cryst 100 mg 100 mg PO Q12H 5 days triamcinolone acetonide 0.1% 1 appl topical DAILY Tobacco use date assessed: 04/09/25 Dental Screening Dental Screen Date: 04/09/25 Did you have a dental visit in the last 12 months?: No Did you have a dental problem in the last 6 months where you did not have access to dental care?: No Was dental information given to patient?: No HPI follow up HPI Details 50 year old female with past medical his tory of OCD, anxiety, ADHD last seen 02/2025 coming in for follow up. Presenting for a follow-up visit to manage multiple chronic conditions and preventative care. She recently has been cutting down on her cigarette smoking from 15 cigarettes per day to 4 cigarettes per day 8 of by Wellbutrin. She knows an improvement in her anxiety, depression and ADHD since starting the Wellbutrin in his only on once daily dosing. She experiences urinary urgency with no present of infection at this time in his awaiting a Urology consultation. [facility] Medical History Anxiety Surgical History S/P gastric bypass Family History Mother COPD (chronic obstructive pulmonary disease) Heart disease Father Heart attack Brother No problems noted. Son No problems noted. Son No problems noted. Maternal Grandmother Breast cancer Maternal Aunt Breast cancer Other Mental health disorder Substance use disorder Social History Housing: Apartment Alcohol intake: current Alcohol intake frequency: 0-2 drinks per day Alcohol type: wine Patient Tobacco Use Status: Current everyday Tobacco user Tobacco use type: Cigarette Cigarettes Per Day: 4 e-Cigarette/Vaping Use: Never Used Second Hand Smoke Exposure: Yes service: No Current occupational status: employed Current occupation: Para-professional at a elementary school Current occupational exposures/hazards: No Cognitive needs: No Hearing needs: No Vision needs: Yes Questionnaire PHQ-9 Over the last 2 weeks, how often have you been bothered by any of the following problems? 1. Little interest or pleasure in doing things: more than half the days 2. Feeling down, depressed, or hopeless: several days 3. Trouble falling or staying asleep, or sleeping too much: nearly every day 4. Feeling tired or having little energy: several days 5. Poor appetite or overeating: several days 6. Feeling bad about yourself - or that you are a failure or have let yourself or your family down: several days 7. Trouble concentrating on things, such as reading the newspaper or watching television: several days 8. Moving or speaking so slowly that other people could have noticed. Or the opposite - being so fidgety or restless that you have been moving around a lot more than usual: not at all 9. Thoughts that you would be better off or of hurting yourself in some way: not at all Total score: 10 Depression Screening Interpretation: Positive Depression Screening Follow-up: Existing condition and In treatment Depression Screening Done: Yes Source: Developed by Drs. Morris Parrish, Lilliana Romero, Salomón Don and colleagues, with an educational iain from [employer]. Thrive Questionnaire Date Thrive assessed: 02/28/25 I am a: Patient What is your living situation today?: I have a steady place to live Within the past 12 months, did the food you bought not last and you didn't have the money to get more?: Never true Within the past 12 months, did you worry whether your food would run out before you got money to buy more?: Never true Do you have trouble paying for medicines?: No Do you have trouble getting transportation to medical appointments?: No Do you have trouble paying your heating and electricity bill?: No Do you have trouble taking care of your child, family member or friend?: No Do you have trouble with day-to-day activities such as bathing, preparing meals, shopping, managing finances, etc.?: No Are you currently unemployed and looking for a job?: No Are you interested in more education?: Yes Please select the resources that you would like help with: None Currently or been in a relationship where the following occur: No concerns reported THRIVE Score: 0 AUDIT C Alcohol Use Questionnaire (AUDIT-C) 1. How often do you have a drink containing alcohol?: 4 or more times a week 2. How many drinks containing alcohol do you have on a typical day when you are drinking?: 1 or 2 3. How often do you have six or more drinks on one occasion?: Never Total Score: 4 DEE-7 AMB Questionnaire DEE-7 Date DEE - 7 assessed: 03/06/25 Feeling nervous, anxious, or on edge: 2 = More than half the days Not being able to stop or control worryin = More than half the days Worrying too much about different things: 2 = More than half the days Trouble relaxin = More than half the days Being so restless that it is hard to sit still: 1 = Several days Becoming easily annoyed or irritable: 0 = Not at all Feeling afraid as if something awful might happen: 1 = Several days Total DEE-7 score (0-4 normal; 5-9 mild; 10-14 moderate; 15-21 severe): 10 Source: Developed by Drs. Morris Parrish, Lilliana Romero, Salomón Don and colleagues, with an educational iain from [employer]. Review of Systems Const Denies body aches, Denies chills, Denies fever(s), Denies headache(s) and Denies poor appetite Eyes Reports no additional complaints ENT Denies dysphagia, Denies dizziness, Denies headache(s) and Denies odynophagia Card Denies chest pain, Denies syncope, Denies edema, Denies irregular heart rhythm, Denies lightheadedness and Denies dyspnea Resp Denies cough and Denies dyspnea GI Denies abdominal pain, Denies constipation, Denies dysphagia, Denies diarrhea, Denies nausea, Denies odynophagia and Denies vomiting Reports no additional complaints Musc Reports no additional complaints and Denies abnormal gait Skin/Breast Reports system reviewed and no additional complaints, except as documented Neuro Denies abnormal gait, Denies dizziness, Denies syncope and Denies headache(s) Psych Reports no additional complaints Physical exam (Primary Care) Vital Signs: Last Vital Signs Temp 97.1 F 04/09/25 09:03 Pulse 84 04/09/25 09:03 BP 168/104 H 04/09/25 09:03 Pulse Ox 98 04/09/25 09:03 Oxygen Delivery Method Room Air 04/09/25 09:03 BMI result Body Mass Index 44.7 Tobacco/Smoking Status: Tobacco use Status Tobacco use date assessed 04/09/25 04/09/25 09:07 Patient Tobacco Use Status Current everyday Tobacco 04/09/25 09:05 Tobacco use type Cigarette 04/09/25 09:05 e-Cigarette/Vaping Use Never Used 04/09/25 09:05 PHQ-9: PHQ-9 Score PHQ-9: Total score 04/09/25 09:12 Depression Screening Interpretation: Positive Depression Screening Follow-up: Existing condition and In treatment Thrive Assessment: Date of Thrive Assessment Date Thrive assessed 02/28/25 04/09/25 09:05 Currently or been in a relationship where the following occur: No concerns reported Const General: cooperative, healthy appearing, comfortable and no acute distress Orientation/consciousness: patient oriented x3 HENMT Head: Yes normocephalic Ears: hearing grossly normal bilaterally General nose exam: Normal external nose present Eyes General: appearance normal, both eyes and all related structures Conjunctivae: conjunctivae normal Neck Neck: Yes full ROM and Yes no lymphadenopathy Resp Effort & Inspection: normal respiratory effort Auscultation: clear to auscultation bilaterally, no crackles, no rales, no rhonchi and no wheezes Cardio Rate: regular rate Rhythm: regular rhythm Skin General skin exam: no rashes or lesions noted Neuro General: patient oriented x3 Gait exam (Neuro): Normal gait present Extrem General: Yes normal to inspection, Yes full ROM and No edema Psych Affect: normal affect Attitude: cooperative Insight: Good insight present (Psych) Judgement: Good judgement present (Psych) Coding Level of Care Code Est Pt Level 3 (51101) Diagnoses Recurrent UTI N39.0 Incontinence R32 Anxiety F41.9 ADHD F90.9 OCD (obsessive compulsive disorder) F42.9 Tobacco use disorder F17.200 Numbness and tingling in both hands R20.0; R20.2 Right knee pain M25.561 Right hip pain M25.551 Hypertension I10 Assessment & Plan Assessment & Plan (1) Recurrent UTI: Code(s): N39.0 - Urinary tract infection, site not specified Category: Medical Plan: She has appointment with Urology coming up. Discussed proper hygiene and avoidance of UTIs. (2) Incontinence: Code(s): R32 - Unspecified urinary incontinence Category: Medical Plan: See above (3) Anxiety: Code(s): F41.9 - Anxiety disorder, unspecified Category: Medical Plan: Anxiety, depression and ADHD have all improved with Wellbutrin daily. Continue on this medication at this time. (4) ADHD: Code(s): F90.9 - Attention-deficit hyperactivity disorder, unspecified type Category: Medical Plan: See above (5) OCD (obsessive compulsive disorder): Code(s): F42.9 - Obsessive-compulsive disorder, unspecified Category: Medical Plan: Declining referral at this time (6) Tobacco use disorder: Code(s): F17.200 - Nicotine dependence, unspecified, uncomplicated Category: Medical Plan: Smoking cigarettes and the use of tobacco can be harmful. We discussed the importance of stopping and options to aid in smoking cessation. Plan to continue on Wellbutrin at this time. Patient has successfully cut back smoking from 15 cigarettes per day to 4 cigarettes per day. (7) Numbness and tingling in both hands: Code(s): R20.0 - Anesthesia of skin; R20.2 - Paresthesia of skin Category: Medical Plan: For numbness and tingling in bilateral hands high suspicion for carpal tunnel syndrome given patient's occupation and positive Tinel's test today. Plan for EMG and consider referral for orthopedics. Discussed the use of nighttime wrist splints EMG scheduled for this month (8) Right knee pain: Code(s): M25.561 - Pain in right knee Category: Medical Plan: For right knee pain plan to obtain x-ray for further evaluation and consider orthopedics or physical therapy referral. Reminded about x-ray (9) Right hip pain: Code(s): M25.551 - Pain in right hip Category: Medical Plan: Patient also complaining of right hip pain plan for hip x-ray as well (10) Hypertension: Code(s): I10 - Essential (primary) hypertension Category: Medical Plan: Blood pressure elevated once again on exam. Plan to start on losartan daily for blood pressure management and follow up in 6 weeks. Plan This note was constructed using voice recognition software. While every effort has been made to ensure accuracy and block cleaner, still areas may have been included sometimes these areas may affect the content or meeting of the given symptoms. Total time spent caring for the patient today was 30 minutes. This includes time spent before the visit reviewing the chart, time spent during the visit, and time spent after the visit and documentation. Orders: Orders XR hip RT min 2V Today M25.551 - Pain in right hip Medications: New losartan 25 mg PO DAILY 90 tabs 0RF Discontinued nitrofurantoin monohyd/m-cryst 100 mg must administer with a meal/food Discontinued Reason: Patient no longer taking 100 mg PO Q12H 5 days 10 caps 0RF
--- OUTSIDE RECORDS SUMMARY | 2025-04-09 09:07 | XMS_ITS | Clinical Summary ---
Author Organization [facility] ity Address [address] [place] [address] Care Team Providers Care Quality Assurance Nurse Name Role Phone Unavailable Primary Care Provider [...] Smear 01/21/1997 Depression Screening 07/09/2024 COVID-19 Vaccine (1 - 2023-2 5 season) 2025 Influenza Vaccine (#1) 2025 RSV Immunization Adult Patie nts (1 - 1-dose 75+ series) 01/21/2051 HIB Vaccines Aged Out No longer eligi [...]
== END 2025-04-09 09:48 | disposition home or self-care (01) ==
LOC: HO.HMCH 08:42
DX: N39.0 Urinary tract infection, site not specified (principal); R32 Unspecified urinary incontinence; F41.9 Anxiety disorder, unspecified; F90.9 Attention-deficit hyperactivity disorder, unspecified type; F42.9 Obsessive-compulsive disorder, unspecified; F17.200 Nicotine dependence, unspecified, uncomplicated; R20.0 Anesthesia of skin; R20.2 Paresthesia of skin; M25.561 Pain in right knee; M25.551 Pain in right hip; I10 Essential (primary) hypertension

== ENCOUNTER 2025-04-28 07:50 | Outpatient (REF) | payer BC, SELFPAY ==
--- NOTE | ~2025-04-28 | XR_ITS ---
EXAMINATION: XR HIP 2 OR MORE VIEWS RIGHT HISTORY: M25.551 - Pain in right hip COMPARISON: There are no prior studies available for comparison. FINDINGS: Two views of the right hip are submitted. Osseous mineralization is normal. There is no fracture or dislocation. The joint space is maintained. The soft tissues are unremarkable. XR/XR hip RT min 2V IMPRESSION: Unremarkable examination of the right hip. Electronically signed by: Morris Gallegos MD 04/28/2025 09:17 AM EDT
--- NOTE | ~2025-04-28 | XR_ITS ---
EXAMINATION: XR KNEE, RIGHT CLINICAL INFORMATION: M25.561 - Pain in right knee COMPARISON: None available. TECHNIQUE: Two views of the right knee. FINDINGS: No fracture, dislocation, or suspicious bone lesion. There is no evidence of joint effusion. There is normal alignment. Mild to moderate tricompartmental osteoarthrosis present, most significant in the lateral compartment. There is mild spurring of the tibial spines. No soft tissue abnormality is evident. XR/XR knee RT 2V IMPRESSION: 1. No acute bony or soft tissue abnormalities. No joint effusion. 2. Mild to moderate tricompartmental osteoarthrosis. Electronically signed by: Watson Cox MD 04/28/2025 09:17 AM EDT
--- NOTE | 2025-04-28 07:53 | EMG_ITS ---
Chief complaint: Only right upper extremity numbness and pain Reason for referral: R20.2, R20.0 Paresthesia, Anesthesia of skin Referred by: CHACE Chopra Procedure done: NCS of right arm with EMG of right upper extremity studied Right median and ulnar motor studies were performed. Right median and ulnar mixed sensory, radial sensory, and median and lateral antecubital brachial sensory studies were performed. EMG needle examination was performed. Right median motor distal latency was slightly prolonged. Right median mixed sensory distal latency was moderately prolonged with slow conduction velocity. Otherwise no significant abnormality noted. Impression: [id number] right median neuropathy across carpal tunnel MTDD
== END 2025-04-28 07:51 | disposition home or self-care (01) ==
LOC: HO.NEURO 07:50
DX: R20.0 Anesthesia of skin (principal); R20.2 Paresthesia of skin; M25.561 Pain in right knee; M25.551 Pain in right hip
CPT/HCPCS: 73502; 73560; 95886; 95909; 95910

== ENCOUNTER → 2025-04-28 07:53 | Outpatient (BNV) | payer BC, SELFPAY | PROVIDERS: Visit Provider Psychiatry & Neurology Neurology | DX: G56.01 Carpal tunnel syndrome, right upper limb (principal) | CPT/HCPCS: 95886; 95910 ==

== ENCOUNTER → 2025-04-28 08:34 | Outpatient (BNV) | payer BC, SELFPAY | PROVIDERS: Visit Provider Radiology Diagnostic Radiology | DX: M25.551 Pain in right hip (principal); M17.11 Unilateral primary osteoarthritis, right knee | CPT/HCPCS: 73502; 73560 ==

== ENCOUNTER 2025-04-30 10:35 | Outpatient (AMB) | payer BC, SELFPAY ==
[2025-04-30 10:46] VITALS: BP 158/84; PULSE 88; O2SAT 96; BMI 44.7
--- NOTE | 2025-04-30 10:46 | MHC.OFFVIS ---
Vital Signs 04/30/25 10:46 Height 5 ft Weight 229 lb BMI 44.7 BP 158/84 H Blood Pressure Location Lt brachial Position Sitting Pulse 88 Pulse Oximetry (%) 96 Oxygen Delivery Method Room Air Intake Visit Reasons: Screening, fecal abnormalities Intake Note: Patient new consult for 1st pre Colonoscopy and fecal abnormalities Patient cc: last week patient was with N/V with Constipation. Denies any other GI issues. 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 Referred by PCP for further evaluation of positive Cologuard. Positive stool DNA test (Cologuard) performed on 03-17-2025. She reports no visible blood per rectum or melena, and stools are described as daily, consistently loose (type 5?6), brown-colored, but not true diarrhea. She endorses incomplete evacuation despite daily bowel movements, which extends the duration of toileting to up to an hour with repeated attempts at completion. She attributes her loose stools and prolonged BM to low fiber intake, with a limited, repetitive diet lacking in fiber-rich foods. No abdominal pain, weight loss, or changes in stool caliber; no valente constipation, but stools remain loose. She denies current nausea, vomiting, hematemesis, heartburn, or dysphagia. Notably, she has a history of a gastric ulcer diagnosed in 2011 (likely peptic in nature), confirmed via endoscopy, typically managed with as-needed acid suppression (tbie-fho-enowgic PPI), required less than weekly or a few times monthly, generally provoked by NSAID use or ?hollow? epigastric sensations without burning. No recent exacerbations. No documented H. pylori eradication; no prior cancer diagnoses. No anemia, stable weight in recent labs. Comorbidities include hypertension and nicotine dependence, with ongoing Losartan and Wellbutrin therapy, as well as topical corticosteroids. Social hx: -ETOH use, 1-2 glasses wine/daily -denies recreational drug use -current 1/2 ppd smoker, working on cessation. - family hx as below -denies personal hx of CA -denies significant cardiopulmonary history -tolerated anesthesia in the past wtihout difficulty. PFSH Medical History (Updated 04/30/25 @ 11:49 by Lynda Sarah CNP) Obesity Acid reflux Anxiety Surgical History (Updated 04/30/25 @ 11:08 by Lynda Sarah CNP) S/P gastric bypass Family History Mother COPD (chronic obstructive pulmonary disease) Heart disease Father Heart attack Brother No problems noted. Son No problems noted. Son No problems noted. Maternal Grandmother Breast cancer Maternal Aunt Breast cancer Other Mental health disorder Substance use disorder Social History Housing: Apartment Alcohol intake: current Alcohol intake frequency: 0-2 drinks per day Alcohol type: wine Patient Tobacco Use Status: Current everyday Tobacco user Tobacco use type: Cigarette Cigarettes Per Day: 4 e-Cigarette/Vaping Use: Never Used Second Hand Smoke Exposure: Yes service: No Current occupational status: employed Current occupation: Para-professional at a elementary school Current occupational exposures/hazards: No Cognitive needs: No Hearing needs: No Vision needs: Yes Review of Systems Const Reports as per HPI ENT Reports as per HPI Card Reports as per HPI Resp Reports as per HPI GI Reports as per HPI Reports as per HPI Physical Exam Vital Signs: Last Vital Signs Pulse 88 04/30/25 10:46 BP 158/84 H 04/30/25 10:46 Pulse Ox 96 04/30/25 10:46 Oxygen Delivery Method Room Air 04/30/25 10:46 BMI result Body Mass Index 44.7 Const General: healthy appearing, no acute distress and well developed Nutritional Appearance: obese Orientation/consciousness: patient oriented x3 HEENT Head: Yes normal to inspection, Yes normocephalic and Yes atraumatic Face and sinus: Yes normal facial exam Eyes General: appearance normal, both eyes and all related structures Neck Neck: Yes normal visual inspection Resp Effort & Inspection: normal respiratory effort, able to speak in complete sentences, no tracheal deviation and symmetric chest movement Cardio Jugular venous distension: no JVD GI Inspection: Yes normal to inspection, No distended and Yes obesity Palpation (GI): Soft to palpation, not firm, nontender and No hepatosplenomegaly present Auscultation: normal bowel sounds Neuro General: patient oriented x3 Gait exam (Neuro): Normal gait present Psych Appearance: grossly normal Mental Status: mental status grossly normal Speech and movement: Normal speech and movement present Affect: normal affect Attitude: cooperative Thought process: Normal thought process present Thought content: Normal thought content present Insight: Good insight present (Psych) Judgement: Good judgement present (Psych) Assessment & Plan Assessment & Plan (1) Positive colorectal cancer screening using Cologuard test: Code(s): R19.5 - Other fecal abnormalities Category: Medical Plan: Screening positive for colonic neoplasia/advanced adenoma; best practice is diagnostic colonoscopy for direct visualization and potential intervention. Additional Testing: - Colonoscopy (recommended and planned) Medication Management: - Preparatory laxative regimen (Miralax split dose + 4 bisacodyl tabs; OTC) Lifestyle Recommendations: - Low-residue diet several days prior to prep (avoid high-fiber, seeds, raw produce, red meat) - Clear liquids day prior; strict bowel prep adherence Follow-Up: - GI follow-up post-procedure for review of pathology and further management based on findings (2) Acid reflux: Code(s): K21.9 - Gastro-esophageal reflux disease without esophagitis Category: Medical Qualifiers: Esophagitis presence: esophagitis presence not specified Qualified Code(s): K21.9 - Gastro-esophageal reflux disease without esophagitis Plan: Subjective hx of upper GI ulcer, uncertain H. pylori eradication, ongoing use of potential irritants (NSAIDs, alcohol, tobacco), intermittent gastric symptoms Additional Testing: - Repeat H. pylori testing - EGD to be performed concurrently with planned colonoscopy Medication Management: -hold PPI x2 weeks - we will resume PPI for daily therapy after breath testing complete - Avoid chronic NSAID use Lifestyle Recommendations: - Minimize/cease alcohol and tobacco; avoidance especially of NSAIDs; dietary modifications as tolerated Follow-Up: - Per EGD results, reassessment of need for acid suppression or H. pylori-directed tx (3) Obesity: Code(s): E66.9 - Obesity, unspecified Category: Medical Qualifiers: Obesity type: due to excess calories Obesity classification: adult class 3 (BMI >= 40) Serious obesity comorbidity presence: without serious comorbidity Body mass index: BMI 40.0-44.9 Qualified Code(s): E66.01 - Morbid (severe) obesity due to excess calories; Z68.41 - Body mass index [BMI] 40.0-44.9, adult; Z68.41 - Body mass index [BMI] 40.0-44.9, adult Plan: Weight stable in 220s post-gastric bypass, ongoing weight management concerns, history of prior bariatric surgery, patient expresses interest in non-pharmacologic strategies Additional Testing: None at this time; monitor weight trends Medication Management: None currently; patient not interested in GLP-1 agonists or other pharmacologic agents due to side effect concerns Lifestyle Recommendations: Encourage review and possible implementation of intermittent fasting (recommend provided); reinforce dietary modifications, portion control, and avoidance of nocturnal eating; support ongoing efforts to reduce alcohol and tobacco use Follow-Up: Monitor weight and metabolic parameters at routine GI and primary care visits; reassess interest in additional interventions as needed Plan Follow-up after endoscopy or sooner as needed Time: I spent a total of 45 minutes on the date of encounter which includes: Preparing to see the patient (reviewed previous documentation, test results and medical history) Performing a medically appropriate exam and/or evaluation Ordering medications, tests, and procedures Documenting clinical information in the health record Orders: Orders H Pylori Breath Test Today Referrals GI Procedure Notification K21.9 - Gastro-esophageal reflux disease without esophagitis, R19.5 - Other fecal abnormalities, Z12.11 - Encounter for screening for malignant neoplasm of colon Medications: New bisacodyl Take per colonoscopy instructions 20 mg (4 x 5 mg) PO ONCE 4 tabs 0RF polyethylene glycol 3350 (Miralax) per colonoscopy prep instructions 238 grams PO ONCE 238 grams 0RF Coding Level of Care Code New Pt New Pt Level 4 (83433) Patient Type New Diagnoses Positive colorectal cancer screening using Cologuard test R19.5 Gastroesophageal reflux disease, unspecified whether esophagitis present K21.9 Esophagitis presence: esophagitis presence not specified Class 3 severe obesity due to excess calories without serious comorbidity with body mass index (BMI) of 40.0 to 44.9 in adult E66.01; Z68.41; Z68.41 Obesity type: due to excess calories Obesity classification: adult class 3 (BMI >= 40) Serious obesity comorbidity presence: without serious comorbidity Body mass index: BMI 40.0-44.9
--- OUTSIDE RECORDS SUMMARY | 2025-04-30 12:47 | XMS_ITS | Clinical Summary ---
Author Organization [facility] ity Address [address] [place] [address] Care Team Providers Care It Security Consulting Director Name Role Phone Unavailable Primary Care Provider [...]
== END 2025-04-30 11:30 | disposition home or self-care (01) ==
LOC: HO.HGI 10:36
PROVIDERS: Visit Provider Nurse Practitioner Family
DX: R19.5 Other fecal abnormalities (principal); K21.9 Gastro-esophageal reflux disease without esophagitis; E66.01 Morbid (severe) obesity due to excess calories; Z68.41 Body mass index [BMI] 40.0-44.9, adult
CPT/HCPCS: 99204

== ENCOUNTER 2025-05-05 13:18 | Outpatient (AMB) | payer BC, SELFPAY ==
[2025-05-05 13:22] VITALS: BP 140/98; PULSE 99; TEMP 36.3; O2SAT 98; BMI 44.8
--- NOTE | 2025-05-05 13:22 | A.OFFPC_ITS ---
Vital Signs 05/05/25 13:22 Height 5 ft Weight 229 lb 6 oz BMI 44.8 BP 140/98 H Blood Pressure Location Lt brachial Position Sitting Pulse 99 Pulse Source Pulse Oximeter Temp 97.3 F Temp Source Temporal Artery Scan Pulse Oximetry (%) 98 Oxygen Delivery Method Room Air Intake Visit Reasons: Shoulder pain (R) Allergies ibuprofen Allergy (Unknown, Verified 05/05/25 13:27) Stomach Upset NSAIDS (Non-Steroidal Anti-Inflamma Adverse Reaction (Verified 05/05/25 13:27) Gastrointestinal Upset Medication List - Last Reviewed 05/05/25 by Elsa Garza MA bisacodyl 20 mg (4 x 5 mg) PO ONCE bupropion HCl SR (Wellbutrin SR) 150 mg PO DAILY cholecalciferol (vitamin D3) 25 mcg PO DAILY losartan 25 mg PO DAILY mecobalamin (vitamin B12) (B12 Active) 1,000 mcg PO DAILY polyethylene glycol 3350 (Miralax) 238 grams PO ONCE triamcinolone acetonide 0.1% 1 appl topical DAILY Tobacco use date assessed: 05/05/25 Dental Screening Dental Screen Date: 05/05/25 Did you have a dental visit in the last 12 months?: No Did you have a dental problem in the last 6 months where you did not have access to dental care?: No Was dental information given to patient?: No HPI Shoulder pain (R) HPI Details 50-year-old female with past medical his tory of OCD, anxiety, ADHD last seen 04/2025 coming in for acute problem. In review of the notes, patient completed nerve conduction study test 04/28/2025 revealed mild to moderate right carpal tunnel. Presenting with worsening right shoulder pain. The shoulder pain initially began in August and has become intensely worse in the last few weeks, with a recent episode of severe pain that brought her to tears. The pain originates in her neck and radiates down her right arm, causing numbness in the entire arm and hand. She rates the current pain as a 6 out of 10. 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 She has tried lidocaine patches, Tylenol for arthritis, a CBD stick, and other topical creams for relief. A nerve conduction study of the right arm showed mild to moderate median neuropathy consistent with carpal tunnel syndrome but no evidence of cervical impingement. [facility] Medical History Obesity Acid reflux Anxiety Surgical History S/P gastric bypass Family History Mother COPD (chronic obstructive pulmonary disease) Heart disease Father Heart attack Brother No problems noted. Son No problems noted. Son No problems noted. Maternal Grandmother Breast cancer Maternal Aunt Breast cancer Other Mental health disorder Substance use disorder Social History Housing: Apartment Alcohol intake: current Alcohol intake frequency: 0-2 drinks per day Alcohol type: wine Patient Tobacco Use Status: Current everyday Tobacco user Tobacco use type: Cigarette Cigarettes Per Day: 11 e-Cigarette/Vaping Use: Never Used Second Hand Smoke Exposure: Yes service: No Current occupational status: employed Current occupation: Para-professional at a elementary school Current occupational exposures/hazards: No Cognitive needs: No Hearing needs: No Vision needs: Yes Questionnaire PHQ-9 Over the last 2 weeks, how often have you been bothered by any of the following problems? 1. Little interest or pleasure in doing things: more than half the days 2. Feeling down, depressed, or hopeless: several days 3. Trouble falling or staying asleep, or sleeping too much: nearly every day 4. Feeling tired or having little energy: several days 5. Poor appetite or overeating: several days 6. Feeling bad about yourself - or that you are a failure or have let yourself or your family down: several days 7. Trouble concentrating on things, such as reading the newspaper or watching television: several days 8. Moving or speaking so slowly that other people could have noticed. Or the opposite - being so fidgety or restless that you have been moving around a lot more than usual: not at all 9. Thoughts that you would be better off or of hurting yourself in some way: not at all Total score: 10 Depression Screening Interpretation: Positive Depression Screening Follow-up: Existing condition and In treatment Depression Screening Done: Yes Source: Developed by Drs. Morris Parrish, Lilliana Romero, Salomón Don and colleagues, with an educational iain from [employer]. Thrive Questionnaire Date Thrive assessed: 02/28/25 I am a: Patient What is your living situation today?: I have a steady place to live Within the past 12 months, did the food you bought not last and you didn't have the money to get more?: Never true Within the past 12 months, did you worry whether your food would run out before you got money to buy more?: Never true Do you have trouble paying for medicines?: No Do you have trouble getting transportation to medical appointments?: No Do you have trouble paying your heating and electricity bill?: No Do you have trouble taking care of your child, family member or friend?: No Do you have trouble with day-to-day activities such as bathing, preparing meals, shopping, managing finances, etc.?: No Are you currently unemployed and looking for a job?: No Are you interested in more education?: Yes Please select the resources that you would like help with: None Currently or been in a relationship where the following occur: No concerns reported THRIVE Score: 0 AUDIT C Alcohol Use Questionnaire (AUDIT-C) 1. How often do you have a drink containing alcohol?: 4 or more times a week 2. How many drinks containing alcohol do you have on a typical day when you are drinking?: 1 or 2 3. How often do you have six or more drinks on one occasion?: Never Total Score: 4 DEE-7 AMB Questionnaire DEE-7 Date DEE - 7 assessed: 03/06/25 Feeling nervous, anxious, or on edge: 2 = More than half the days Not being able to stop or control worryin = More than half the days Worrying too much about different things: 2 = More than half the days Trouble relaxin = More than half the days Being so restless that it is hard to sit still: 1 = Several days Becoming easily annoyed or irritable: 0 = Not at all Feeling afraid as if something awful might happen: 1 = Several days Total DEE-7 score (0-4 normal; 5-9 mild; 10-14 moderate; 15-21 severe): 10 Source: Developed by Drs. Morris Parrish, Lilliana Romero, Salomón Don and colleagues, with an educational iain from [employer]. Review of Systems Const Denies body aches, Denies fatigue, Denies fever(s), Denies frequent falls, Denies headache(s) and Denies weakness Eyes Reports no additional complaints and Denies change in vision ENT Denies dysphagia, Denies dizziness, Denies facial pain, Denies headache(s), Denies nasal congestion and Denies odynophagia Card Denies chest pain, Denies syncope, Denies irregular heart rhythm, Denies leg edema, Denies lightheadedness and Denies dyspnea Resp Denies cough and Denies dyspnea GI Denies constipation, Denies dysphagia, Denies dyspepsia, Denies diarrhea, Denies nausea, Denies odynophagia and Denies vomiting Denies urinary frequency, Denies dysuria, Denies urinary hesitancy and Denies urinary urgency Musc Denies back pain and Denies myalgias Skin/Breast Reports system reviewed and no additional complaints, except as documented Neuro Denies dizziness, Denies syncope, Denies frequent falls, Denies headache(s) and Denies weakness Psych Reports no additional complaints Endo Denies fatigue Physical exam (Primary Care) Vital Signs: Last Vital Signs Temp 97.3 F 05/05/25 13:22 Pulse 99 05/05/25 13:22 BP 140/98 H 05/05/25 13:22 Pulse Ox 98 05/05/25 13:22 Oxygen Delivery Method Room Air 05/05/25 13:22 BMI result Body Mass Index 44.8 Tobacco/Smoking Status: Tobacco use Status Tobacco use date assessed 05/05/25 05/05/25 13:24 Patient Tobacco Use Status Current everyday Tobacco 05/05/25 13:24 Tobacco use type Cigarette 05/05/25 13:24 e-Cigarette/Vaping Use Never Used 05/05/25 13:24 PHQ-9: PHQ-9 Score PHQ-9: Total score 05/05/25 13:32 Depression Screening Interpretation: Positive Depression Screening Follow-up: Existing condition and In treatment Thrive Assessment: Date of Thrive Assessment Date Thrive assessed 02/28/25 05/05/25 13:24 Currently or been in a relationship where the following occur: No concerns reported Const General: cooperative, healthy appearing, comfortable and no acute distress Orientation/consciousness: patient oriented x3 HENMT Head: Yes normocephalic Ears: hearing grossly normal bilaterally General nose exam: Normal external nose present Eyes General: appearance normal, both eyes and all related structures Conjunctivae: conjunctivae normal Neck Neck: Yes full ROM and Yes no lymphadenopathy Resp Effort & Inspection: normal respiratory effort Auscultation: clear to auscultation bilaterally, no crackles, no rales, no rhonchi and no wheezes Cardio Rate: regular rate Rhythm: regular rhythm Skin General skin exam: no rashes or lesions noted Neuro General: patient oriented x3 Gait exam (Neuro): Normal gait present Extrem Other: No pain with internal rotation, extension or flexion of the shoulder. Intact strength, sensation pulses in bilateral upper extremities. No tenderness to palpation over entirety of shoulder General: Yes normal to inspection, Yes full ROM and No edema Psych Affect: normal affect Attitude: cooperative Insight: Good insight present (Psych) Judgement: Good judgement present (Psych) Coding Level of Care Code Est Pt Level 3 (76352) Diagnoses Right shoulder pain M25.511 Hypertension I10 Anxiety F41.9 Assessment & Plan Assessment & Plan (1) Right shoulder pain: Code(s): M25.511 - Pain in right shoulder Category: Medical Plan: The patient's right shoulder and neck pain is suspected to be muscular in origin or an arthritic flare, likely exacerbated by overuse, repetitive motions, and 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 To rule out bony pathology, X- rays of the cervical spine and right shoulder will be ordered. For immediate management of the inflammatory flare, a prednisone taper over 8 days is prescribed, as NSAIDs are contraindicated due to a history of an ulcer and given methocarbamol to be used as needed. A referral will be placed for orthopedics the patient requests. Patient may also use Tylenol, heating pads and gentle stretching (2) Hypertension: Code(s): I10 - Essential (primary) hypertension Category: Medical Plan: Continue on current blood pressure medication. Avoid salt intake and encourage healthy diet and regular exercise. Mildly elevated in the office today however patient is anxious and pain and is also drinking caffeinated beverage during the visit. She has been monitoring blood pressures at home and has seen an improvement but may not be taking the blood pressure appropriately. Finds the patient with resources on how to take appropriate blood pressure plan to follow up in 1 week with values. (3) Anxiety: Code(s): F41.9 - Anxiety disorder, unspecified Category: Medical Plan: The patient reports feeling more anxious and smoking more, and questions whether her recently started Wellbutrin dose should be increased. She was advised to continue the current dose, as Wellbutrin typically takes four to six weeks to reach its full therapeutic effect. The plan is to re-evaluate at the next follow-up appointment. Plan This note was constructed using voice recognition software. While every effort has been made to ensure accuracy and lease purchase truck driver, still areas may have been included sometimes these areas may affect the content or meeting of the given symptoms. Total time spent caring for the patient today was 20 minutes. This includes time spent before the visit reviewing the chart, time spent during the visit, and time spent after the visit and documentation. Patient was informed and verbally consented to the use of an ambient scribe for clinic note documentation during this visit. Orders: Orders XR shoulder RT min 2V 05/05/25 M25.511 - Pain in right shoulder XR cervical spine 2V 05/05/25 M54.2 - Cervicalgia Referrals Orthopedics Referral M25.511 - Pain in right shoulder Medications: New prednisone Take 4 tablets on days 1-2, take 3 tablets on days 3-4, take 2 tablets on days 5-6, take 1 tablet on days 7-8. 10 mg PO DIRECTED 20 tabs 0RF methocarbamol 500 mg PO TID 30 tabs 0RF
--- OUTSIDE RECORDS SUMMARY | 2025-05-05 17:04 | XMS_ITS | Clinical Summary ---
Author Organization [facility] ity Address [address] [place] [address] Care Team Providers Care Police Lieutenant Name Role Phone Unavailable Primary Care Provider [...]
== END 2025-05-05 14:42 | disposition home or self-care (01) ==
LOC: HO.HMCH 13:20
DX: M25.511 Pain in right shoulder (principal); I10 Essential (primary) hypertension; F41.9 Anxiety disorder, unspecified

== ENCOUNTER 2025-05-21 08:15 | Outpatient (REF) | payer BC, SELFPAY ==
--- OUTSIDE RECORDS SUMMARY | 2025-05-21 08:26 | XMS_ITS | Clinical Summary ---
Author Organization [facility] ity Address [address] [place] [address] Care Team Providers Care Elementary Education Tutor Name Role Phone Unavailable Primary Care Provider [...] Depression Screening 07/09/2024 COVID-19 Vaccine (1 - 2024-2 6 season) 2025 Influenza Vaccine (#1) 2025 RSV [...]
== END 2025-05-21 08:16 | disposition home or self-care (01) ==
LOC: HO.LNP 08:15
PROVIDERS: Visit Provider Nurse Practitioner Family
DX: Z11.0 Encounter for screening for intestinal infectious diseases (principal)
CPT/HCPCS: 83013

== ENCOUNTER 2025-05-26 07:57 | Outpatient (AMB) | payer BC, SELFPAY ==
--- NOTE | 2025-05-26 08:01 | MHC.OFFVIS ---
Intake Visit Reasons: urinary incontinence, recurrent UTIs Intake Note: New patient presents today for initial visit for urinary incontinence/recurrent UTI's Urology Medication:Vitamin B12 Blood Thinner:None Antibiotic Allergies:None PVR:0ml Allergies ibuprofen Allergy (Unknown, Verified 05/26/25 21:43) Stomach Upset NSAIDS (Non-Steroidal Anti-Inflamma Adverse Reaction (Verified 05/26/25 21:43) Gastrointestinal Upset Medication List - Last Reconciled 05/26/25 by ESPINOZA Rivera bupropion HCl SR (Wellbutrin SR) 150 mg PO DAILY cholecalciferol (vitamin D3) 25 mcg PO DAILY losartan 25 mg PO DAILY mecobalamin (vitamin B12) (B12 Active) 1,000 mcg PO DAILY polyethylene glycol 3350 (Miralax) 238 grams PO ONCE triamcinolone acetonide 0.1% 1 appl topical DAILY HPI Comments Details: Kat is a very pleasant 50 year old female patient. She has a past medical history of obesity, acid reflux, and anxiety. She presents to the office today as a new patient for ongoing lower urinary tract symptoms she has been experiencing. In discussion with the patient today she reports for many years (atleast 10) she has been having episodes of mixed urinary incontinence as well as urinary urgency and frequency. She reports feeling symptoms have worsened and has recently established PCP care in recommendations were made for urology referral for further assessment evaluation. She reports typically she utilizes 4-5 Sera pads per day. She does report vaginal deliveries of average size babies. She reports 1st labor was prolonged. In office urinalysis results reviewed with the patient today. PVR 0 mL. She does report having followed up with urgent care for UTI like symptoms she had been experiencing at which time she was given antibiotics however urine culture was negative and therefore she discontinued antibiotic therapy. She does report feeling at times she experiences dysuria however feels symptoms are relieved with azo and or increase in hydration. We did discuss potential causes of lower urinary tract symptoms she is experiencing as well as further treatment options and risks and benefits of these treatment options. We did discussed obtaining retroperitoneal ultrasound for further assessment evaluation. She denies gross/visible hematuria, dysuria, foul smelling urine, changes to urinary stream, flank pain, fever, and or chills. All questions were answered. She otherwise offers no other issues or concerns at this time. History of Present Illness The patient is a 50-year-old female presenting with urinary frequency and urgency. She has experienced these symptoms for a decade, necessitating daily pad use due to leakage. The urgency intensifies as she nears the bathroom, prompting a hurried approach. Additionally, the patient reports recurrent urinary tract infections, with three to four episodes per year. Initial tests at urgent care suggested UTIs, but follow-up cultures were negative for bacterial growth. Symptoms often resolve spontaneously within days, indicating possible non-infectious etiology. Lifestyle changes, including reduced caffeine consumption, have been implemented to alleviate symptoms. The patient previously tried medication for overactive bladder but discontinued due to dry mouth. She expresses a preference for diagnostic evaluations over pharmacological interventions. Plan Patient was informed and verbally consented to the use of an ambient scribe for clinic note documentation during this visit. 1. Urinary Frequency And Urgency Lifestyle changes, including avoiding bladder triggers and irritants that were discussed during today's office visit were recommended to assist with managing symptoms. A urodynamic study is planned to evaluate bladder function and guide treatment decisions. Discussion Notes During the consultation, I discussed the patient's symptoms of urinary frequency and urgency, as well as recurrent urinary tract infections. We reviewed lifestyle modifications, including dietary changes, to alleviate symptoms. I explained the urodynamic study procedure, which will help determine treatment approach, whether it be medication or procedural interventions. Information was provided The patient expressed a preference for diagnostic evaluation over medication, and I reassured her that we would proceed at her comfort level. [facility] Medical History Obesity Acid reflux Anxiety Surgical History S/P gastric bypass Family History Mother COPD (chronic obstructive pulmonary disease) Heart disease Father Heart attack Brother No problems noted. Son No problems noted. Son No problems noted. Maternal Grandmother Breast cancer Maternal Aunt Breast cancer Other Mental health disorder Substance use disorder Social History Housing: Apartment Alcohol intake: current Alcohol intake frequency: 0-2 drinks per day Alcohol type: wine Patient Tobacco Use Status: Current everyday Tobacco user Tobacco use type: Cigarette Cigarettes Per Day: 11 e-Cigarette/Vaping Use: Never Used Second Hand Smoke Exposure: Yes service: No Current occupational status: employed Current occupation: Para-professional at a elementary school Current occupational exposures/hazards: No Cognitive needs: No Hearing needs: No Vision needs: Yes Review of Systems Const All systems reviewed & are unremarkable except as noted in HPI and below Physical Exam Const General: cooperative, healthy appearing, comfortable, no acute distress, well developed, alert and awake Orientation/consciousness: patient oriented x3 Limitations: no limitations HEENT Head: Yes normal to inspection, Yes normocephalic and Yes atraumatic Ears: hearing grossly normal bilaterally Eyes General: appearance normal, both eyes and all related structures Neck Neck: Yes normal visual inspection and Yes trachea midline Chest Chest palpation & inspection: normal inspection of the chest Resp Effort & Inspection: normal respiratory effort and able to speak in complete sentences Cardio Rate: regular rate GI Inspection: Yes normal to inspection General: Yes no CVA tenderness Back/Spine/Pelvis Back: no CVA tenderness Skin General skin exam: no rashes or lesions noted Neuro General: patient oriented x3 Extrem General: Yes normal to inspection Psych Appearance: grossly normal and well kempt Mental Status: mental status grossly normal Speech and movement: Normal speech and movement present and Clear speech present Affect: normal affect Attitude: cooperative Thought process: Normal thought process present Thought content: Normal thought content present Insight: Fair insight present (Psych) Judgement: Fair judgement present (Psych) Office Procedures Post Void Residual Post Residual Void Post Void Residual (PVR): 0 25019-Pyds Void Residual by ultrasound Results AMB Urinalysis, Automated UA Leukoctes 0 Neelam/uL Last Edit by Yeimy Natarajan on 05/26/25 12:17 UA Nitrite Negative Last Edit by Yeimy Natarajan on 05/26/25 12:17 UA Urobilinogen 0.2 mg/dL Last Edit by Yeimy Natarajan on 05/26/25 12:17 UA Protein 0 mg/dL Last Edit by Yeimy Natarajan on 05/26/25 12:17 UA pH 6.0 Last Edit by Yeimy Natarajan on 05/26/25 12:17 UA Blood 10 Tawanda/uL Last Edit by Yeimy Natarajan on 05/26/25 12:17 UA Specific [place] 1.020 Last Edit by Yeimy Natarajan on 05/26/25 12:17 UA Ketone Negative Last Edit by Yeimy Natarajan on 05/26/25 12:17 UA Bilirubin 0 mg/dL Last Edit by Yeimy Natarajan on 05/26/25 12:17 UA Glucose 0 mg/dL Last Edit by Yeimy Natarajan on 05/26/25 12:17 Results Reviewed Results Reviewed: Laboratory Last Values Urine pH (Auto) 6.0 05/26/25 12:07 Specific [place] (Auto) 1.020 05/26/25 12:07 Urine Protein (Auto) 0 mg/dL 05/26/25 12:07 Glucose (UA)(Auto) 0 mg/dL 05/26/25 12:07 Urine Ketones (Auto) Negative 05/26/25 12:07 Urine Blood (Auto) 10 Tawanda/uL 05/26/25 12:07 Urine Nitrite (Auto) Negative 05/26/25 12:07 Urine Bilirubin (Auto) 0 mg/dL 05/26/25 12:07 Urine Urobilinogen (Auto) 0.2 mg/dL 05/26/25 12:07 Leukocyte Esterase (Auto) 0 Neelam/uL 05/26/25 12:07 Assessment & Plan Assessment & Plan (1) Incontinence: Code(s): R32 - Unspecified urinary incontinence Category: Medical (2) Lower urinary tract symptoms: Code(s): R39.9 - Unspecified symptoms and signs involving the genitourinary system Category: Medical (3) Urinary frequency: Code(s): R35.0 - Frequency of micturition Category: Medical (4) Urinary incontinence, mixed: Code(s): N39.46 - Mixed incontinence Category: Medical Plan In office urinalysis results reviewed with the patient today; as noted above; will send for urine cytology. PVR 0 mL. We did discuss at length potential causes of lower urinary tract symptoms patient is experiencing as well as further treatment options and risks and benefits of these treatment options. All questions were answered. Will obtain retroperitoneal ultrasound for further assessment evaluation. We discussed bladder triggers and irritants. Information provided regarding urodynamics study. Follow-up next available in office urodynamics with imaging to be completed prior; or sooner with any issues, concerns, and or questions. Orders: Orders AMB Urinalysis Automated Today N39.0 - Urinary tract infection, site not specified, R30.0 - Dysuria, R32 - Unspecified urinary incontinence AMB Post Void Residual by ultrasound Today N39.0 - Urinary tract infection, site not specified, R30.0 - Dysuria, R32 - Unspecified urinary incontinence Urine Cytology Today N39.0 - Urinary tract infection, site not specified, R30.0 - Dysuria, R32 - Unspecified urinary incontinence US retroperitoneal comp Today N39.46 - Mixed incontinence, R32 - Unspecified urinary incontinence, R35.0 - Frequency of micturition, R39.9 - Unspecified symptoms and signs involving the genitourinary system Patient Instructions: The patient had an opportunity to ask questions regarding the treatment plan. All questions were answered. Physical exam, labs, and imaging were discussed and reviewed in detail. As well as risks, benefits, and discussion of treatment choices. No major barriers to understanding were identified. The patient expressed understanding and agreement with the above treatment plan. The patient was made aware they should contact our office by phone for worsening of their current condition, the appearance of new symptoms, or with any questions or concerns. Compliance is encouraged with any medications and follow up testing that is ordered. It is a privilege to be allowed the opportunity to participate in? your urological care.? Again, if you have any questions or concerns If you have any questions or concerns please do not hesitate to contact me. The office is [phone]. This note is constructed using voice recognition software. While every effort has been made to ensure accuracy special population paraprofessional errors may have been included. Yours sincerely, ESPINOZA Rivera Coding Level of Care Code New Pt Level 3 (35858) Diagnoses Incontinence R32 Lower urinary tract symptoms R39.9 Urinary frequency R35.0 Urinary incontinence, mixed N39.46 CPT Codes Post Residual Void - PVR CPT Code: 89615-Rnhi Void Residual by ultrasound ([id number])
== END 2025-05-26 09:09 | disposition home or self-care (01) ==
LOC: HO.HUSH 07:57
PROVIDERS: Visit Provider Nurse Practitioner Family
DX: R32 Unspecified urinary incontinence (principal); R39.9 Unspecified symptoms and signs involving the genitourinary system; R35.0 Frequency of micturition; N39.46 Mixed incontinence; R30.0 Dysuria; N39.0 Urinary tract infection, site not specified
CPT/HCPCS: 99203

== ENCOUNTER 2025-05-26 07:57 | Outpatient (REF) | payer BC, SELFPAY | END 2025-05-26 07:58 | disposition home or self-care (01) | LOC: HO.LAB 07:57 | PROVIDERS: Visit Provider Nurse Practitioner Family | DX: N39.46 Mixed incontinence (principal); N39.0 Urinary tract infection, site not specified; R35.0 Frequency of micturition; R30.0 Dysuria; R39.9 Unspecified symptoms and signs involving the genitourinary system; Z79.899 Other long term (current) drug therapy | CPT/HCPCS: 51798; 81003; 88112 ==

== ENCOUNTER 2025-05-27 08:47 | Outpatient (AMB) | payer BC, SELFPAY ==
[2025-05-27 09:01] VITALS: BP 140/100; PULSE 93; RESP 18; TEMP 36.1; O2SAT 99; BMI 45.0
--- NOTE | 2025-05-27 09:01 | MHC.PC.OV ---
Vital Signs 05/27/25 09:01 Height 5 ft Weight 230 lb 4 oz BMI 45.0 BP 140/100 H Blood Pressure Location Lt brachial Position Sitting Respiration 18 Pulse 93 Pulse Source Pulse Oximeter Temp 96.9 F Temp Source Temporal Artery Scan Pulse Oximetry (%) 99 Oxygen Delivery Method Room Air Intake Visit Reasons: Follow Up Assistant Chief Nursing Officer Required: No Accompanied by: Self / Same As Patient Allergies ibuprofen Allergy (Unknown, Verified 05/27/25 09:02) Stomach Upset NSAIDS (Non-Steroidal Anti-Inflamma Adverse Reaction (Verified 05/27/25 09:02) Gastrointestinal Upset Medication List - Last Reconciled 05/27/25 by Olga Mccormick PA-C bupropion HCl SR (Wellbutrin SR) 150 mg PO BID cholecalciferol (vitamin D3) 25 mcg PO DAILY losartan 25 mg PO DAILY mecobalamin (vitamin B12) (B12 Active) 1,000 mcg PO DAILY polyethylene glycol 3350 (Miralax) 238 grams PO ONCE triamcinolone acetonide 0.1% 1 appl topical DAILY Tobacco use date assessed: 05/27/25 Dental Screening Dental Screen Date: 05/27/25 Did you have a dental visit in the last 12 months?: No Did you have a dental problem in the last 6 months where you did not have access to dental care?: No Was dental information given to patient?: No HPI Follow Up HPI Details 50-year-old female with past medical history of OCD, anxiety, ADHD last seen 04/2025 coming in for follow up. In review of the notes, patient was seen by urology 05/2025 plan to obtain retroperitoneal ultrasound and follow up. Presenting for management of multiple conditions and a new foot complaint. She reports that yesterday her left foot became very itchy at work, and upon returning home, she noticed it was swollen. She also has a palpable heard lump in the anterior left calf. Regarding her chronic shoulder issue, she states the pain has improved, but she continues to experience constant numbness in the same arm. A prior nerve study was normal aside from mild carpal tunnel syndrome, which was deemed unrelated to her shoulder symptoms, and she has a follow-up appointment with orthopedics scheduled for June. The patient monitors her blood pressure at home and shared recent readings have been elevated. Blood pressure has been elevated in the office as well. She continues to smoke cigarettes, noting she does well during the day but experiences a strong craving around 6 p.m. She is currently taking Wellbutrin 150 mg once daily. [facility] Medical History Obesity Acid reflux Anxiety Surgical History S/P gastric bypass Family History Mother COPD (chronic obstructive pulmonary disease) Heart disease Father Heart attack Brother No problems noted. Son No problems noted. Son No problems noted. Maternal Grandmother Breast cancer Maternal Aunt Breast cancer Other Mental health disorder Substance use disorder Social History Housing: Apartment Alcohol intake: current Alcohol intake frequency: 0-2 drinks per day Alcohol type: wine Patient Tobacco Use Status: Current everyday Tobacco user Tobacco use type: Cigarette Cigarettes Per Day: 11 e-Cigarette/Vaping Use: Never Used Second Hand Smoke Exposure: Yes service: No Current occupational status: employed Current occupation: Para-professional at a elementary school Current occupational exposures/hazards: No Cognitive needs: No Hearing needs: No Vision needs: Yes Questionnaire PHQ-9 Over the last 2 weeks, how often have you been bothered by any of the following problems? 1. Little interest or pleasure in doing things: more than half the days 2. Feeling down, depressed, or hopeless: several days 3. Trouble falling or staying asleep, or sleeping too much: nearly every day 4. Feeling tired or having little energy: several days 5. Poor appetite or overeating: several days 6. Feeling bad about yourself - or that you are a failure or have let yourself or your family down: several days 7. Trouble concentrating on things, such as reading the newspaper or watching television: several days 8. Moving or speaking so slowly that other people could have noticed. Or the opposite - being so fidgety or restless that you have been moving around a lot more than usual: not at all 9. Thoughts that you would be better off or of hurting yourself in some way: not at all Total score: 10 Depression Screening Interpretation: Positive Depression Screening Follow-up: Existing condition and In treatment Depression Screening Done: Yes Source: Developed by Drs. Morris Parrish, Lilliana Romero, Salomón Don and colleagues, with an educational iain from [employer]. Thrive Questionnaire Date Thrive assessed: 02/28/25 I am a: Patient What is your living situation today?: I have a steady place to live Within the past 12 months, did the food you bought not last and you didn't have the money to get more?: Never true Within the past 12 months, did you worry whether your food would run out before you got money to buy more?: Never true Do you have trouble paying for medicines?: No Do you have trouble getting transportation to medical appointments?: No Do you have trouble paying your heating and electricity bill?: No Do you have trouble taking care of your child, family member or friend?: No Do you have trouble with day-to-day activities such as bathing, preparing meals, shopping, managing finances, etc.?: No Are you currently unemployed and looking for a job?: No Are you interested in more education?: Yes Please select the resources that you would like help with: None Currently or been in a relationship where the following occur: No concerns reported THRIVE Score: 0 AUDIT C Alcohol Use Questionnaire (AUDIT-C) 1. How often do you have a drink containing alcohol?: 4 or more times a week 2. How many drinks containing alcohol do you have on a typical day when you are drinking?: 1 or 2 3. How often do you have six or more drinks on one occasion?: Never Total Score: 4 DEE-7 AMB Questionnaire DEE-7 Date DEE - 7 assessed: 03/06/25 Feeling nervous, anxious, or on edge: 2 = More than half the days Not being able to stop or control worryin = More than half the days Worrying too much about different things: 2 = More than half the days Trouble relaxin = More than half the days Being so restless that it is hard to sit still: 1 = Several days Becoming easily annoyed or irritable: 0 = Not at all Feeling afraid as if something awful might happen: 1 = Several days Total DEE-7 score (0-4 normal; 5-9 mild; 10-14 moderate; 15-21 severe): 10 Source: Developed by Drs. Morris Parrish, Lilliana Romero, Salomón Don and colleagues, with an educational iain from [employer]. Review of Systems Const Denies body aches, Denies chills, Denies fever(s), Denies headache(s) and Denies poor appetite Eyes Reports no additional complaints ENT Denies dizziness and Denies headache(s) Card Denies chest pain, Denies edema and Denies dyspnea Resp Denies cough and Denies dyspnea GI Denies abdominal pain, Denies constipation, Denies diarrhea, Denies nausea and Denies vomiting Reports no additional complaints Musc Reports no additional complaints and Denies abnormal gait Skin/Breast Reports system reviewed and no additional complaints, except as documented Neuro Denies abnormal gait, Denies dizziness and Denies headache(s) Psych Reports no additional complaints Physical exam (Primary Care) Vital Signs: Last Vital Signs Temp 96.9 F 05/27/25 09:01 Pulse 93 05/27/25 09:01 Resp 18 05/27/25 09:01 BP 140/100 H 05/27/25 09:01 Pulse Ox 99 05/27/25 09:01 Oxygen Delivery Method Room Air 05/27/25 09:01 BMI result Body Mass Index 45.0 Tobacco/Smoking Status: Tobacco use Status Tobacco use date assessed 05/27/25 05/27/25 09:10 Patient Tobacco Use Status Current everyday Tobacco 05/27/25 09:10 Tobacco use type Cigarette 05/27/25 09:10 e-Cigarette/Vaping Use Never Used 05/27/25 09:10 PHQ-9: PHQ-9 Score PHQ-9: Total score 10 05/27/25 09:10 Depression Screening Interpretation: Positive Depression Screening Follow-up: Existing condition and In treatment Thrive Assessment: Date of Thrive Assessment Date Thrive assessed 02/28/25 05/27/25 09:10 Currently or been in a relationship where the following occur: No concerns reported Const General: cooperative, healthy appearing, comfortable and no acute distress Orientation/consciousness: patient oriented x3 HENMT Head: Yes normocephalic Ears: hearing grossly normal bilaterally General nose exam: Normal external nose present Eyes General: appearance normal, both eyes and all related structures Conjunctivae: conjunctivae normal Neck Neck: Yes full ROM and Yes no lymphadenopathy Resp Effort & Inspection: normal respiratory effort Auscultation: clear to auscultation bilaterally, no crackles, no rales, no rhonchi and no wheezes Cardio Rate: regular rate Rhythm: regular rhythm Skin General skin exam: no rashes or lesions noted Neuro General: patient oriented x3 Gait exam (Neuro): Normal gait present Extrem General: Yes normal to inspection, Yes full ROM and No edema Upper/lower leg/hip images:  1. palpable red, warm, swollen bump without TTP 2. red, warm, swollen ankle without TTP. Intact pulses and sensation Psych Affect: normal affect Attitude: cooperative Insight: Good insight present (Psych) Judgement: Good judgement present (Psych) Coding Level of Care Code Est Pt Level 4 (14363) Diagnoses Left leg swelling M79.89 Hypertension I10 Anxiety F41.9 Class 3 severe obesity due to excess calories without serious comorbidity with body mass index (BMI) of 40.0 to 44.9 in adult E66.01; Z68.41; Z68.41 Obesity type: due to excess calories Obesity classification: adult class 3 (BMI >= 40) Serious obesity comorbidity presence: without serious comorbidity Body mass index: BMI 40.0-44.9 Incontinence R32 Tobacco use disorder F17.200 Assessment & Plan Assessment & Plan (1) Left leg swelling: Code(s): M79.89 - Other specified soft tissue disorders Category: Medical Plan: The patient presents with a swollen, warm, red, and itchy foot with a central bump, suspicious for cellulitis, possibly secondary to an insect bite. Due to the unilateral swelling and the patient's risk factor of smoking, a deep vein thrombosis (DVT) must be ruled out. A stat ultrasound of the leg will be ordered today to exclude DVT. The patient will be prescribed doxycycline twice daily for seven days to treat the suspected infection and to cover for a potential tick bite. The patient was advised to seek immediate follow-up if her symptoms worsen or do not improve with antibiotics. (2) Hypertension: Code(s): I10 - Essential (primary) hypertension Category: Medical Plan: The patient's blood pressure is not well-controlled, with recent home readings as high as 140/93 mmHg. The losartan dose will be increased to 50 mg daily. The patient was instructed to take two of her current tablets to achieve the new dose and was advised to implement this change for 3-4 days before adjusting her Wellbutrin. A follow-up appointment is scheduled in two to three months to re-evaluate her blood pressure. (3) Anxiety: Code(s): F41.9 - Anxiety disorder, unspecified Category: Medical Plan: PLan to increase Wellbutrin to BID for better management of anxiety and tobacco use disorder. (4) Obesity: Code(s): E66.9 - Obesity, unspecified Category: Medical Qualifiers: Obesity type: due to excess calories Obesity classification: adult class 3 (BMI >= 40) Serious obesity comorbidity presence: without serious comorbidity Body mass index: BMI 40.0-44.9 Qualified Code(s): E66.01 - Morbid (severe) obesity due to excess calories; Z68.41 - Body mass index [BMI] 40.0-44.9, adult; Z68.41 - Body mass index [BMI] 40.0-44.9, adult Plan: Healthy diet and regular exercise is encouraged. (5) Incontinence: Code(s): R32 - Unspecified urinary incontinence Category: Medical Plan: Continue to follow with urology for workup and has imaging coming up in August. (6) Tobacco use disorder: Code(s): F17.200 - Nicotine dependence, unspecified, uncomplicated Category: Medical Plan: Plan to increase Wellbutrin to BID for better management. Smoking cigarettes and the use of tobacco can be harmful. We discussed the importance of stopping and options to aid in smoking cessation Plan This note was constructed using voice recognition software. While every effort has been made to ensure accuracy and accounting recruiter, still areas may have been included sometimes these areas may affect the content or meeting of the given symptoms. Total time spent caring for the patient today was 20 minutes. This includes time spent before the visit reviewing the chart, time spent during the visit, and time spent after the visit and documentation. Patient was informed and verbally consented to the use of an ambient scribe for clinic note documentation during this visit. Orders: Orders US venous duplex LE LT Today M79.89 - Other specified soft tissue disorders Medications: New losartan 50 mg PO DAILY 90 tabs 0RF doxycycline hyclate 100 mg PO BID 14 tabs 0RF Changed From bupropion HCl SR (Wellbutrin SR) 150 mg PO DAILY 90 tabs 0RF To bupropion HCl SR (Wellbutrin SR) 150 mg PO BID 180 tabs 0RF Discontinued losartan Discontinued Reason: Patient no longer taking 25 mg PO DAILY 90 tabs 0RF
--- OUTSIDE RECORDS SUMMARY | 2025-05-27 16:26 | XMS_ITS | Clinical Summary ---
Author Organization [facility] ity Address [address] [place] [address] Care Team Providers Care Night Time Nanny Name Role Phone Unavailable Primary Care Provider [...]
== END 2025-05-27 10:05 | disposition home or self-care (01) ==
LOC: HO.HMCH 08:48
DX: I10 Essential (primary) hypertension (principal); M79.89 Other specified soft tissue disorders; E66.01 Morbid (severe) obesity due to excess calories; Z68.41 Body mass index [BMI] 40.0-44.9, adult; F41.9 Anxiety disorder, unspecified; R32 Unspecified urinary incontinence; F17.200 Nicotine dependence, unspecified, uncomplicated

== ENCOUNTER 2025-05-27 12:22 | Outpatient (REF) | payer BC, SELFPAY ==
--- NOTE | ~2025-05-27 | XR_ITS ---
EXAMINATION: XR CERVICAL SPINE CLINICAL INFORMATION: M54.2 - Cervicalgia COMPARISON: Correlated to CT dated August 27, 2020 TECHNIQUE: AP, lateral and atlantoodontoid views FINDINGS: Craniocervical junction is intact. Marginal osteophyte formation and endplate sclerosis and decreased intervertebral disc height C5-6 and C6-7 levels. No gross malalignment. No acute cortical disruption. No lytic or blastic lesions. Upper airway is patent. XR/XR cervical spine 2V IMPRESSION: Cervical spondylosis C5-6 and C6-7 levels, worsened since prior exam. EXAMINATION: XR SHOULDER, RIGHT CLINICAL INFORMATION: M 25.511 -pain, right shoulder. COMPARISON: December 13, 2009 TECHNIQUE: AP external rotation, Grashey, scapular Y, and axillary views of the right shoulder. FINDINGS: No acute cortical disruption or malalignment. No lytic or blastic lesions. No soft tissue calcifications. IMPRESSION: No acute fracture or dislocation or gross degenerative changes. Electronically signed by: Shoaib Nolasco MD 05/27/2025 12:56 PM EST
--- NOTE | ~2025-05-27 | XR_ITS ---
EXAMINATION: XR CERVICAL SPINE CLINICAL INFORMATION: M54.2 - Cervicalgia COMPARISON: Correlated to CT dated August 27, 2020 TECHNIQUE: AP, lateral and atlantoodontoid views FINDINGS: Craniocervical junction is intact. Marginal osteophyte formation and endplate sclerosis and decreased intervertebral disc height C5-6 and C6-7 levels. No gross malalignment. No acute cortical disruption. No lytic or blastic lesions. Upper airway is patent. XR/XR shoulder RT min 2V IMPRESSION: Cervical spondylosis C5-6 and C6-7 levels, worsened since prior exam. EXAMINATION: XR SHOULDER, RIGHT CLINICAL INFORMATION: M 25.511 -pain, right shoulder. COMPARISON: December 13, 2009 TECHNIQUE: AP external rotation, Grashey, scapular Y, and axillary views of the right shoulder. FINDINGS: No acute cortical disruption or malalignment. No lytic or blastic lesions. No soft tissue calcifications. IMPRESSION: No acute fracture or dislocation or gross degenerative changes. Electronically signed by: Shoaib Nolasco MD 05/27/2025 12:56 PM EST
--- NOTE | ~2025-05-27 | US_ITS ---
EXAMINATION: US TRIPLEX LOWER EXTREMITY, LEFT CLINICAL INFORMATION: M 79.89 . Edema, left lower extremity. COMPARISON: None available. TECHNIQUE: Color-flow triplex imaging with spectral analysis and compression Doppler were performed on the left lower extremity. FINDINGS: Respiratory variation, normal compression and augmented flow demonstrated in the interrogated left common femoral vein, superficial femoral vein, profunda femoral vein, popliteal vein and midcalf peroneal and posterior tibial venous segments . There is no Ruano's cyst. US/US venous duplex LE IMPRESSION: No acute deep venous thrombosis interrogated veins, left lower extremity. Negative for DVT. Electronically signed by: Shoaib Nolasco MD 05/27/2025 01:12 PM [facility]
== END 2025-05-27 12:23 | disposition home or self-care (01) ==
LOC: HO.US 12:22
DX: M54.2 Cervicalgia (principal); M25.511 Pain in right shoulder; F42.9 Obsessive-compulsive disorder, unspecified; F41.9 Anxiety disorder, unspecified; F90.9 Attention-deficit hyperactivity disorder, unspecified type; M79.89 Other specified soft tissue disorders; I10 Essential (primary) hypertension; E66.01 Morbid (severe) obesity due to excess calories; R32 Unspecified urinary incontinence; F17.210 Nicotine dependence, cigarettes, uncomplicated; Z68.41 Body mass index [BMI] 40.0-44.9, adult
CPT/HCPCS: 72040; 73030; 93971; 96127

== ENCOUNTER → 2025-05-27 12:25 | Outpatient (BNV) | payer BC, SELFPAY | PROVIDERS: Visit Provider Radiology Diagnostic Radiology | DX: M79.89 Other specified soft tissue disorders (principal); M54.2 Cervicalgia; M25.511 Pain in right shoulder | CPT/HCPCS: 72040; 73030; 93971 ==

== ENCOUNTER 2025-06-18 14:00 | Outpatient (AMB) | payer BC, SELFPAY ==
[2025-06-18 14:03] VITALS: BMI 44.9
--- NOTE | 2025-06-18 14:03 | A.OFFVIS_ITS ---
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 The patient describes her neck pain as sharp in nature. Her symptoms have gotten worse over the last year in spite of continued non operative treatments. She has had cortisone injections in the past which gave her minimal relief. She states that at times her right arm will go ?numb?. She also reports intermittent weakness in her right arm. At this point her neck pain is interfering with her activities of daily living and her ability to sleep well through the night. She has failed the last 6 weeks of conservative treatment which has included Tylenol and a home exercise program. She is not able to tolerate anti-inflammatory medicines because of a history of ulcer disease. Allergies ibuprofen Allergy (Unknown, Verified 06/18/25 14:04) Stomach Upset NSAIDS (Non-Steroidal Anti-Inflamma Adverse Reaction (Verified 06/18/25 14:04) Gastrointestinal Upset Medication List - Last Reconciled 06/18/25 by Noah Syed MD bupropion HCl SR (Wellbutrin SR) 150 mg PO BID cholecalciferol (vitamin D3) 25 mcg PO DAILY losartan 50 mg PO DAILY mecobalamin (vitamin B12) (B12 Active) 1,000 mcg PO DAILY polyethylene glycol 3350 (Miralax) 238 grams PO ONCE triamcinolone acetonide 0.1% 1 appl topical DAILY PFSH Medical History Obesity Acid reflux Anxiety Surgical History S/P gastric bypass Family History Mother COPD (chronic obstructive pulmonary disease) Heart disease Father Heart attack Brother No problems noted. Son No problems noted. Son No problems noted. Maternal Grandmother Breast cancer Maternal Aunt Breast cancer Other Mental health disorder Substance use disorder Social History Housing: Apartment Alcohol intake: current Alcohol intake frequency: 0-2 drinks per day Alcohol type: wine Patient Tobacco Use Status: Current everyday Tobacco user Tobacco use type: Cigarette Cigarettes Per Day: 11 e-Cigarette/Vaping Use: Never Used Second Hand Smoke Exposure: Yes service: No Current occupational status: employed Current occupation: Para-professional at a elementary school Current occupational exposures/hazards: No Cognitive needs: No Hearing needs: No Vision needs: Yes Physical Exam Vital Signs: BMI result Body Mass Index 44.9 Neck Other: Cervical spine examination shows right-sided paraspinal muscle tenderness, pain with range of motion, positive Spurling's test, 4/5 strength with testing of her right biceps and wrist extensors when compared to 5/5 strength on her left side Extrem Other: Right shoulder examination shows slightly decreased range of motion when compared to her left shoulder, 4+ out of 5 strength with supraspinatus testing, positive impingement signs, no instability Results Reviewed Results Reviewed: X-rays of the patient's right shoulder show moderate to severe acromioclavicular joint narrowing, a type 2 acromion, no acute bony abnormalities Assessment & Plan Assessment & Plan (1) Right shoulder pain: Code(s): M25.511 - Pain in right shoulder Category: Medical (2) Neck pain on right side: Code(s): M54.2 - Cervicalgia Category: Medical Plan Ms. Gannon presents with progressively worsening neck pain which radiates down her right arm as well as associated right arm weakness possibly due to cervical stenosis versus a disc herniation. Thus, I will send the patient for an MRI of her cervical spine for further evaluation. I will contact her by phone once the MRI results are available. She will call me prior to that time should her symp toms worsen in any way. The patient also has right shoulder pain due to impingement syndrome. We will hold off on a cortisone injection for now. Feel free to call me at any time should questions regarding her orthopedic management arise. Thank you very much for asking me to see this very friendly patient. I spent 20 minutes in reviewing the patient's records and imaging studies, seeing the patient and documenting in the medical record. Orders: Orders MR cervical spine wo con 06/19/25 M54.2 - Cervicalgia Coding Level of Care Code New Pt Level 3 (76692) Add On Problem Visit Only Diagnoses Right shoulder pain M25.511 Neck pain on right side M54.2
--- OUTSIDE RECORDS SUMMARY | 2025-06-18 21:30 | XMS_ITS | Clinical Summary ---
Author Organization [facility] ity Address [address] [place] [address] Care Team Providers Care Reception Centre Manager Name Role Phone Unavailable Primary Care Provider [...]
== END 2025-06-18 14:27 | disposition home or self-care (01) ==
LOC: HO.HOS 14:01
PROVIDERS: Visit Provider Orthopaedic Surgery
DX: M25.511 Pain in right shoulder (principal); M54.2 Cervicalgia
CPT/HCPCS: 99203

== ENCOUNTER 2025-06-19 15:48 | Outpatient (REF) | payer BC, SELFPAY ==
--- NOTE | ~2025-06-19 | US_ITS ---
EXAMINATION: US RETROPERITONEAL COMPLETE (RENAL) CLINICAL INFORMATION: Mixed incontinence. Urgency. COMPARISON: None available. TECHNIQUE: Real-time imaging of the kidneys and bladder. FINDINGS: RIGHT KIDNEY: 9.8 x 5.3 x 5.1 cm (SAG x AP x TRV). The kidney is normal in size, contour, and echogenicity. Renal cortical thickness is normal. No calculi or focal parenchymal lesions. No hydronephrosis. There are a few scattered tiny echogenic non-shadowing foci, nonspecific. LEFT KIDNEY: 11.2 x 5.3 x 5.0 cm (SAG x AP x TRV). The kidney is normal in size, contour, and echogenicity. Renal cortical thickness is normal. No calculi or focal parenchymal lesions. No hydronephrosis. There are a few scattered tiny echogenic non-shadowing foci, nonspecific. BLADDER: Mildly distended and grossly normal. Patient complained of urgency with volume of 48 cc. Bilateral ureteral jets are demonstrated. Prevoid bladder volume is 48 mL. Postvoid bladder volume is 9.2 mL. US/US retroperitoneal comp IMPRESSION: 1. Essentially normal kidneys with no hydronephrosis or shadowing calculus. 2. Patient complained of urgency to urinate with bladder volume of only 48 cc. Bladder otherwise normal. Postvoid residual was 9 mL. Electronically signed by: Watson Cox MD 06/19/2025 04:24 PM [facility]
--- OUTSIDE RECORDS SUMMARY | 2025-06-19 20:30 | XMS_ITS | Clinical Summary ---
Author Organization [facility] ity Address [address] [place] [address] Care Team Providers Care Wort Extractor Name Role Phone Unavailable Primary Care Provider [...]
== END 2025-06-19 15:49 | disposition home or self-care (01) ==
LOC: HO.US 15:48
PROVIDERS: Visit Provider Nurse Practitioner Family
DX: N39.46 Mixed incontinence (principal); R35.0 Frequency of micturition; R39.9 Unspecified symptoms and signs involving the genitourinary system
CPT/HCPCS: 76770

== ENCOUNTER → 2025-06-19 15:51 | Outpatient (BNV) | payer BC, SELFPAY | PROVIDERS: Visit Provider Radiology Diagnostic Radiology | DX: N39.46 Mixed incontinence (principal) | CPT/HCPCS: 76770 ==